=== PATIENT | male | born 1975 | race Hispanic/Latino ===

== ENCOUNTER 2017-12-17 13:16 | Emergency (ER) | payer OTHER ==
[~2017-12-17] VITALS: Ht 182.9 cm; Wt 149.2 kg
[~2017-12-17 13:16] MED LIST: BACTRIM DS TAB1 EACH PO; CLINDAMYCIN HC300 MG PO; DOXYCYCLINE HY100 MG PO; METFORMIN HCL1000 MG PO; NORCO 5-325 TA1 EACH PO; PANTOPRAZOLE SO40 MG PO; REGLAN10 MG PO; VASOTEC5 M1 PO
[2017-12-17] MEDS ORDERED: HYDROCODONE/APAP 10MG-325MG TAB PO ONE (13:45)
[2017-12-17 14:10] LABS: BASOPHILS # (AUTO) 0.1 (0.0-0.1); BASOPHILS % 0.8 % (0.0-1.0); EOSINOPHILS # (AUTO) 0.2 (0.0-0.4); EOSINOPHILS % 2.5 % (0.0-6.0); HEMATOCRIT 40.1 % (38.2-49.6); HEMOGLOBIN 13.3 g/dL (14.0-18.0); LYMPHOCYTES # (AUTO) 3.1 (1.0-3.2); LYMPHOCYTES % 32.9 % (18.0-39.1); MEAN CORPUSCULAR HEMOGLOBIN 27.5 pg (28-32); MEAN CORPUSCULAR HGB CONC 33.2 g/dL (31-35); MEAN CORPUSCULAR VOLUME 82.9 fL (81-99); MONOCYTES # (AUTO) 0.7 (0.2-0.8); MONOCYTES % 7.6 % (4.4-11.3); NEUTROPHILS # (AUTO) 5.3 (2.1-6.9); NEUTROPHILS % 55.7 % (38.7-80.0); PLATELET COUNT 347 x10e3/uL (140-360); RED BLOOD COUNT 4.84 x10e6/uL (4.3-5.7); RED CELL DISTRIBUTION WIDTH 13.2 % (11.7-14.4)
[2017-12-17 14:20] LABS: INR 1.22; PARTIAL THROMBOPLASTIN TIME 38.3 seconds (23.8-35.5); PROTHROMBIN TIME 14.5 seconds (11.9-14.5)
[2017-12-17 14:26] LABS: ANION GAP 12.1 mmol/L (8-16); BLOOD UREA NITROGEN 5 mg/dL (7-26); BUN/CREATININE RATIO 7 (6-25); CALCIUM 9.4 mg/dL (8.4-10.2); CARBON DIOXIDE 29 mmol/L (22-29); CHLORIDE 98 mmol/L (98-107); CREATININE, SERUM 0.75 mg/dL (0.72-1.25); EST GLOMERULAR FILTRATION RATE > 60 ML/MIN (60-); GLUCOSE 216 mg/dL (74-118); POTASSIUM 4.1 mmol/L (3.5-5.1); SODIUM 135 mmol/L (136-145)
--- NOTE | 2017-12-17 14:58 | Diagnostic Imaging Report ---
PROCEDURE:X-RAY LEFT FOOT, COMPLETE COMPARISON:None. INDICATIONS:S/P GREAT TOE AMPUTATION 5 DAYS AGO FINDINGS: Amputation of the first toe at the level of the distal metatarsal with regional soft tissue swelling. No acute displaced fractures of the remaining bones. No dislocations. Hammer-toe deformities. Small dorsal and plantar calcaneal enthesophytes. Mild degenerative changes of the midfoot. CONCLUSION: Postoperative changes related to amputation of the first toe at the level of the distal metatarsal. Dictated by: Schuyler Negro M.D. on 12/17/2017 at 14:59 Electronically approved by: Schuyler Negro M.D. on 12/17/2017 at 14:59
[2017-12-17 17:34] VITALS: BP 158/90
== END 2017-12-17 18:00 | disposition home or self-care (01) ==
LOC: ER 13:16
DX: Z48.01 Encounter for change or removal of surgical wound dressing (principal)
CPT/HCPCS: 36415; 80048; 85025; 85610; 85730; 99283

== ENCOUNTER 2018-01-05 08:36 | Outpatient (RCR) | payer OTHER ==
[2018-01-05] MEDS ORDERED: GABAPENTIN100 MG PO (14:24)
[2018-01-05] MEDS ORDERED: LIDOCAINE VISC 2% SOLN 15 ML UDC ONE (16:49)
== END 2018-01-17 ==
LOC: WCC 08:36
PROVIDERS: ATTEND Family Medicine
DX: E11.621 Type 2 diabetes mellitus with foot ulcer (principal); L97.426 Non-pressure chronic ulcer of left heel and midfoot with bone involvement without evidence of necrosis; I10 Essential (primary) hypertension; Z01.810 Encounter for preprocedural cardiovascular examination; Z01.811 Encounter for preprocedural respiratory examination
CPT/HCPCS: 36415; 82948; 87071; 87075; 87186; 87205

== ENCOUNTER 2018-01-05 13:29 | Inpatient (IN) | payer OTHER ==
[~2018-01-05] VITALS: Ht 182.9 cm; Wt 134.0 kg
--- OUTSIDE RECORDS SUMMARY | 2018-01-05 13:31 | XMS REPORT | Continuity of Care Document ---
Author Author [facility] Organization [facility] Address [address] [place] [address] Phone Unavailable Care Team Providers Care Brush And Broom Clipper Name Role Phone IAIN ROTHMAN MD PCP Advance Directives Directive Response Recorded Date/Time Does the patient have an advance directive? No 02/27/14 2:33am If yes, is advance directive on file with [facility]? No 02/27/14 2:33am If not on file with [facility] will patient provide a copy? No 02/27/14 2:33am Do you have a Directive to Physician? No 12/17/17 6:10pm Do you have a Medical Power of Acquisitions Logistics Analyst? No 12/17/17 6:10pm Do you have an out of hospital Do Not Resuscitate Order? No 12/17/17 6:10pm Do you have any special needs we should be aware of? No 12/17/17 6:10pm Do you have a support person here with you today? Yes 12/17/17 6:10pm Did patient receive Notice of Privacy Practices? Yes 12/17/17 6:10pm Did patient receive patient rights and responsibilities? Yes 12/17/17 6:10pm Problems No problem information available. Medications Current Home Medications Medication Dose Units Route Directions Days Qty Instructions Start Date Enalapril Maleate (Vasotec) 5 Mg Tablet 5 Mg Oral Daily Hydrocodone Bit/Acetaminophen (Clark 5-325 Tablet) 1 Each Tablet 1-2 Tab Oral Bedtime as needed for Pain Hydrocodone Bit/Acetaminophen (Clark 5-325 Tablet) 1 Each Tablet 5 Mg Oral Every 6 Hours 1-2TABS EVERY 6HOURS NEEDED FOR PAIN Metformin Hcl 1,000 Mg Tablet 1,000 Mg Oral Twice A Day Past Home Medications Medication Directions Ordered Status Clindamycin Hcl 300 Mg Capsule, 300 Mg Oral Every 6 Hrs Discontinued Doxycycline Hyclate 100 Mg Capsule, 100 Mg Oral Twice A Day Discontinued Metoclopramide Hcl (Reglan) 10 Mg Tablet, 10 Mg Oral Twice A Day Discontinued Pantoprazole Sodium (Protonix) 40 Mg Tablet.dr, 40 Mg Oral Daily Discontinued Sulfamethoxazole/Trimethoprim (Bactrim Ds Tablet) 1 Each Tablet, Oral Twice A Day Discontinued Social History Social History Problem Response Recorded Date/Time Onset Date Status Hx Psychiatric Problems No 02/27/2014 2:33am Not Applicable Not Applicable Hx Eating Disorder No 02/27/2014 2:33am Not Applicable Not Applicable Hx Substance Use Disorder No 02/27/2014 2:33am Not Applicable Not Applicable Hx Depression No 02/27/2014 2:33am Not Applicable Not Applicable Hx Alcohol Use No 02/27/2014 2:33am Not Applicable Not Applicable Hx Substance Use Treatment No 02/27/2014 2:33am Not Applicable Not Applicable Hx Physical Abuse No 02/27/2014 2:33am Not Applicable Not Applicable Hospital Discharge Instructions No hospital discharge instruction information available. Plan of Care Discharge Date 12/17/17 6:00pm Disposition HOME, SELF-CARE Condition at Discharge Stable Instructions/Education Provided Wound Care (General) Forms Provided Work/School Excuse Prescriptions See Medication Section Additional Instructions/Education KEEP FOLLOW UP APPOINTMENT WITH DR DAILEY ON December AT 2PM KEEP WOUND DRY AND CLEAN CONTINUE CURRENT MEDICATION Functional Status No functional status information available. Allergies, Adverse Reactions, Alerts No known allergies. Immunizations No immunization information available. Vital Signs Acute Vital Signs Vital Response Date/Time Pulse Pulse Rate (adult) 78 bpm (60 - 90) 12/17/2017 5:34pm Respiratory Rate 20 bpm (12 - 24) 12/17/2017 5:34pm Blood Pressure 158/90 mm Hg 12/17/2017 5:34pm Height 6 ft 0 in 12/17/2017 1:22pm Weight 329 lb 12/17/2017 1:22pm Body Mass Index 44.6 kg/m^2 12/17/2017 1:22pm Results Laboratory Results Test Name Result Units Flags Reference Collection Date/Time Result Date/ Time Comments White Blood Count 9.53 x10e3/uL 4.8-10.8 12/17/2017 1:30pm 12/17/2017 2 :13pm Red Blood Count 4.84 x10e6/uL 4.3-5.7 12/17/2017 1:3012/17/2017 2: 13pm Hemoglobin 13.3 g/dL L 14.0-18.0 12/17/2017 1:3012/17/2017 2:13pm Hematocrit 40.1 % 38.2-49.6 12/17/2017 1:3012/17/2017 2:13pm Mean Corpuscular Volume 82.9 fL 81-99 12/17/2017 1:3012/17/2017 2: 13pm Mean Corpuscular Hemoglobin 27.5 pg L 28-32 12/17/2017 1:302017 2:13pm Mean Corpuscular Hemoglobin Concent 33.2 g/dL 31-35 12/17/2017 1:3012/17/2017 2:13pm Red Cell Distribution Width 13.2 % 11.7-14.4 12/17/2017 1:302017 2:13pm Platelet Count 347 x10e3/uL 140-360 12/17/2017 1:3012/17/2017 2: 13pm Neutrophils (%) (Auto) 55.7 % 38.7-80.0 12/17/2017 1:3012/17/2017 2: 13pm Lymphocytes (%) (Auto) 32.9 % 18.0-39.1 12/17/2017 1:3012/17/2017 2: 13pm Monocytes (%) (Auto) 7.6 % 4.4-11.3 12/17/2017 1:3012/17/2017 2: 13pm Eosinophils (%) (Auto) 2.5 % 0.0-6.0 12/17/2017 1:3012/17/2017 2: 13pm Basophils (%) (Auto) 0.8 % 0.0-1.0 12/17/2017 1:30pm 12/17/2017 2:13pm IM GRANULOCYTES % 0.5 % 0.0-1.0 12/17/2017 1:30pm 12/17/2017 2:13pm Neutrophils # (Auto) 5.3 2.1-6.9 12/17/2017 1:30pm 12/17/2017 2:13pm Lymphocytes # (Auto) 3.1 1.0-3.2 12/17/2017 1:30pm 12/17/2017 2:13pm Monocytes # (Auto) 0.7 0.2-0.8 12/17/2017 1:30pm 12/17/2017 2:13pm Eosinophils # (Auto) 0.2 0.0-0.4 12/17/2017 1:30pm 12/17/2017 2:13pm Basophils # (Auto) 0.1 0.0-0.1 12/17/2017 1:30pm 12/17/2017 2:13pm Absolute Immature Granulocyte (auto 0.05 x10e3/uL 0-0.1 12/17/2017 1: 30pm 12/17/2017 2:13pm Prothrombin Time 14.5 seconds 11.9-14.5 12/17/2017 1:30pm 12/17/2017 2: 22pm Prothromb Time International Ratio 1.22 12/17/2017 1:30pm 2017 2:22pm Oral Anticoagulant Therapy INR Values: 1. Low Intensity Therapy 1.5 - 2.0 2. Moderate Intensity Therapy 2.0 - 3.0 3. High Intensity Therapy(1) 2.5 - 3.5 4. High Intensity Therapy(2) 3.0 - 4.0 5. Panic Value INR > 5.0 Activated Partial Thromboplast Time 38.3 seconds H 23.8-35.5 12/17/2017 1 :30pm 12/17/2017 2:22pm Sodium Level 135 mmol/L L 136-145 12/17/2017 1:30pm 12/17/2017 2:27pm Potassium Level 4.1 mmol/L 3.5-5.1 12/17/2017 1:30pm 12/17/2017 2:27pm Chloride Level 98 mmol/L 98-107 12/17/2017 1:30pm 12/17/2017 2:27pm Carbon Dioxide Level 29 mmol/L 22-29 12/17/2017 1:30pm 12/17/2017 2: 27pm Anion Gap 12.1 mmol/L 8-16 12/17/2017 1:30pm 12/17/2017 2:27pm Blood Urea Nitrogen 5 mg/dL L 7-12/17/2017 1:30pm 12/17/2017 2:27pm Creatinine 0.75 mg/dL 0.72-1.25 12/17/2017 1:30pm 12/17/2017 2:27pm BUN/Creatinine Ratio 7 6-12/17/2017 1:30pm 12/17/2017 2:27pm Estimat Glomerular Filtration Rate > 60 ML/MIN 60- 12/17/2017 1:30pm 2:27pm Ranges were taken from the National Kidney Disease Education Program and the National Kidney Foundation literature. Reference ranges: 60 or greater: Normal 16-59 (for 3 consecutive months): Chronic kidney disease 15 or less: Kidney failure Glucose Level 216 mg/dL H 74-118 12/17/2017 1:30pm 12/17/2017 2:27pm Calcium Level 9.4 mg/dL 8.4-10.2 12/17/2017 1:30pm 12/17/2017 2:27pm Procedures No procedure information available. Encounters Encounter Location Arrival/Admit Date Discharge/Depart Date Attending Provider Departed Emergency Room [facility] 12/17/17 1:16pm 6:00pm NIMCO MATA MD
--- OUTSIDE RECORDS SUMMARY | 2018-01-05 13:31 | XMS REPORT ---
Author Author [facility] Address Unknown Phone Unavailable Care Team Providers Care Research Pharmacist Name Role Phone NIMCO MATA Unavailable Unavailable Problems This patient has no known problems. Allergies, Adverse Reactions, Alerts This patient has no known allergies or adverse reactions. Medications This patient has no known medications. Results Test Description Test Time Test Comments Text Results Atomic Results Result Comments FOOT LEFT COMPLETE [place] [id number] Patient Name: ALEXANDRIA ZAVALETA JR MR #: [id number] : 1975 Age/Sex: 42/M Req #: [id number] Adm Physician: Ordered by: NIMCO MATA MD Report #: [id number] Location: ER Room/Bed: Procedure: [id number] DX/FOOT LEFT COMPLETE Exam Date: 12/17/17 Exam Time: 1420 REPORT STATUS: Signed PROCEDURE: X-RAY LEFT FOOT, COMPLETE COMPARISON: None. INDICATIONS: S/P GREAT TOE AMPUTATION 5 DAYS AGO FINDINGS: Amputation of the first toe at the level of the distal metatarsal with regional soft tissue swelling. No acute displaced fractures of the remaining bones. No dislocations. Hammer- toe deformities. Small dorsal and plantar calcaneal enthesophytes. Mild degenerative changes of the midfoot. CONCLUSION: Postoperative changes related to amputation of the first toe at the level of the distal metatarsal. Dictated by: Schuyler Montero M.D. on 12/17/2017 at 14:59 Electronically approved by: Schuyler Montero M.D. on 12/17/2017 at 14:59 Dictated By: SCHUYLER MONTERO MD [id number] Transcribed By: PETER on 12/17/17 1459 COPY TO: NIMCO MATA MD
[2018-01-05] MEDS ORDERED: VANCOMYCIN 1GM/NS 250 ML 250 ML IV STA (13:59)
[2018-01-05] MEDS ORDERED: PIPER-TAZ 3.375 GM 50 ML IV STA (13:59)
[2018-01-05] MEDS ORDERED: GABAPENTIN100 MG PO (14:24)
[2018-01-05] MEDS ORDERED: ONDANSETRON HCL INJ 2 MG/ML VIAL IV STA (14:48)
[2018-01-05 14:59] LABS: BASOPHILS # (AUTO) 0.1 (0.0-0.1); BASOPHILS % 0.8 % (0.0-1.0); EOSINOPHILS # (AUTO) 0.3 (0.0-0.4); EOSINOPHILS % 2.8 % (0.0-6.0); HEMATOCRIT 42.4 % (38.2-49.6); HEMOGLOBIN 14.5 g/dL (14.0-18.0); LYMPHOCYTES # (AUTO) 3.2 (1.0-3.2); MEAN CORPUSCULAR HEMOGLOBIN 27.5 pg (28-32); MEAN CORPUSCULAR HGB CONC 34.2 g/dL (31-35); MEAN CORPUSCULAR VOLUME 80.5 fL (81-99); MONOCYTES # (AUTO) 0.9 (0.2-0.8); MONOCYTES % 8.3 % (4.4-11.3); NEUTROPHILS # (AUTO) 5.8 (2.1-6.9); NEUTROPHILS % 56.7 % (38.7-80.0); PLATELET COUNT 242 x10e3/uL (140-360); RED BLOOD COUNT 5.27 x10e6/uL (4.3-5.7); RED CELL DISTRIBUTION WIDTH 13.5 % (11.7-14.4)
[2018-01-05] MEDS ORDERED: MORPHINE SULFATE 2 MG/ML SYR IV ONE (15:00)
[2018-01-05 15:03] LABS: INR 1.17
[2018-01-05 15:10] LABS: ANION GAP 15.1 mmol/L (8-16); BLOOD UREA NITROGEN 16 mg/dL (7-26); BUN/CREATININE RATIO 15 (6-25); CALCIUM 9.6 mg/dL (8.4-10.2); CARBON DIOXIDE 24 mmol/L (22-29); CHLORIDE 98 mmol/L (98-107); CREATININE, SERUM 1.05 mg/dL (0.72-1.25); EST GLOMERULAR FILTRATION RATE > 60 ML/MIN (60-); GLUCOSE 297 mg/dL (74-118); POTASSIUM 4.1 mmol/L (3.5-5.1); SODIUM 133 mmol/L (136-145)
[2018-01-05] MEDS ORDERED: PIPER-TAZ 3.375 GM 50 ML IV SCH ×2 (16:45)
--- NOTE | 2018-01-05 17:10 | Consultation ---
DATE OF CONSULTATION: January 05, 2018 INFECTIOUS DISEASE CONSULTATION REQUESTING PHYSICIAN: Dr. Tyler Rothman. CONSULTATION REQUESTED REGARDING: Diabetic foot ulcer, probable osteomyelitis, diabetic foot infect. Thank you for this consultation. HISTORY OF PRESENT ILLNESS: This is a 42-year-old male who was originally seen at the wound care center at [facility], has had an amputation of the left great toe which was done in [place], [place], in the end of November 2017, had been on outpatient antibiotic treatment. Went to the wound care center today, was noted to have a nonhealing wound with signs of infection and soft-tissue necrosis along with erythema of the foot. Patient has a history of diabetes mellitus. On initial evaluation is noted to have an elevated white count of 10,000. Chemistries revealed normal BUN, creatinine. Glucose is elevated at 297. Cultures done, results of which are still pending. Wound cultures have also been performed. X-ray of the foot that was performed on the 17 of December revealed postoperative changes related to the amputation of the 1st toe at the level of the distal metatarsal. PAST MEDICAL HISTORY: Diabetes mellitus. Cholecystectomy. ALLERGIES: NO KNOWN DRUG ALLERGIES. CHRONIC MEDICATIONS: Reviewed. FAMILY HISTORY: Noncontributory. SOCIAL HISTORY: No active alcohol, tobacco or drug use. PHYSICAL EXAMINATION VITAL SIGNS: Temperature 98.1, pulse 114, respiratory rate 20, blood pressure 111/67. HEENT: Normocephalic, atraumatic. Extraocular movements not assessed. NECK: Supple. LUNGS: Fair air entry bilaterally. Clear to auscultation. HEART: Sounds S1/S2. No murmur, no gallop. ABDOMEN: Soft, nontender. Normoactive bowel sounds. EXTREMITIES: Left great toe amputation. Site opened with some fatty necrosis and soft-tissue necrosis. LABS: Reveal WBC count of 10.2, hemoglobin 14.5, platelets 242. BUN 16, creatinine 1.5, glucose 297. ASSESSMENT: This is a 42-year-old male with diabetes mellitus, had gangrene of the left great toe status post amputation, had osteomyelitis. Admitted now because of nonhealing wound over the left great toe amputation site with some soft-tissue necrosis and surrounding cellulitis. Suspect a polymicrobial infection. RECOMMENDATIONS: Will continue patient on antibiotic regimen of vancomycin and Zosyn. Consult Podiatry for the need for any further debridement. Cultures have been obtained. Will continue to follow. Duration and course of antibiotic therapy to be determined. Thank you, Dr. Rothman, for this consultation. Will follow patient along with you. Job#: [id number] EV cc:TYLER ROTHMAN MD
[2018-01-05] MEDS ORDERED: KETOROLAC TROMETHAMINE 30 MG/ML VIAL IV STA (17:12)
[2018-01-05] MEDS ORDERED: SODIUM CHLORIDE 0.9% 1000ML 1,000 ML IV ONE (17:15)
[2018-01-05] MEDS: PIPER-TAZ 3.375 GM 100 ML IV SCH (18:03)
[2018-01-05] MEDS ORDERED: DEXTROSE 50% SYRINGE 50 ML IV PRN (18:15)
[2018-01-05] MEDS ORDERED: ONDANSETRON HCL INJ 2 MG/ML VIAL IV PRN (18:15)
[2018-01-05] MEDS: SODIUM CHLORIDE 0.9% 1000ML 1,000 ML IV SCH (18:36)
--- NOTE | 2018-01-05 18:54 | Diagnostic Imaging Report ---
PROCEDURE:X-RAY LEFT FOOT, COMPLETE COMPARISON:[facility], DX, FOOT LEFT COMPLETE, 12/17/2017, 14:20. INDICATIONS:FOOT INFECTION FINDINGS: Amputation of the first toe at the level of the first metatarsal distal diaphysis. Cortical edges are irregular and indistinct. Moderate soft tissue swelling surrounding the first toe, which has increased since the prior exam. No acute displaced fracture or dislocation. Mild degenerative changes of the midfoot. CONCLUSION: Findings likely represent osteomyelitis of the first toe. Kaz Uribe M.D. Dictated by: Kaz Uribe M.D. on 01/05/2018 at 18:55 Electronically approved by: Kaz Uribe M.D. on 01/05/2018 at 18:55
[2018-01-05 20:00] VITALS: BP 128/85
[2018-01-05] MEDS: VANCOMYCIN 1GM/NS 250 ML 250 ML IV SCH (22:18)
[2018-01-05] MEDS: HYDROMORPHONE 1MG/1ML INJ IV PRN (22:22)
[2018-01-06] VITALS (7 sets, daily range): BP systolic 105–136; BP diastolic 54–72
[2018-01-06] MEDS: PIPER-TAZ 3.375 GM 100 ML IV SCH ×5 (01:02→23:26)
[2018-01-06] MEDS: SODIUM CHLORIDE 0.9% 1000ML 1,000 ML IV SCH ×4 (02:11→23:26)
[2018-01-06 06:14] LABS: BASOPHILS # (AUTO) 0.1 (0.0-0.1); BASOPHILS % 0.9 % (0.0-1.0); EOSINOPHILS # (AUTO) 0.3 (0.0-0.4); EOSINOPHILS % 4.2 % (0.0-6.0); HEMATOCRIT 37.6 % (38.2-49.6); HEMOGLOBIN 12.6 g/dL (14.0-18.0); LYMPHOCYTES # (AUTO) 3.4 (1.0-3.2); LYMPHOCYTES % 42.7 % (18.0-39.1); MEAN CORPUSCULAR HEMOGLOBIN 27.5 pg (28-32); MEAN CORPUSCULAR HGB CONC 33.5 g/dL (31-35); MEAN CORPUSCULAR VOLUME 82.1 fL (81-99); MONOCYTES # (AUTO) 0.8 (0.2-0.8); MONOCYTES % 10.3 % (4.4-11.3); NEUTROPHILS # (AUTO) 3.3 (2.1-6.9); NEUTROPHILS % 41.5 % (38.7-80.0); PLATELET COUNT 202 x10e3/uL (140-360); RED BLOOD COUNT 4.58 x10e6/uL (4.3-5.7); RED CELL DISTRIBUTION WIDTH 13.6 % (11.7-14.4)
[2018-01-06 06:32] LABS: INR 1.15; PROTHROMBIN TIME 13.8 seconds (11.9-14.5)
[2018-01-06 06:33] LABS: PARTIAL THROMBOPLASTIN TIME 35.8 seconds (23.8-35.5)
[2018-01-06 06:44] LABS: ANION GAP 10.2 mmol/L (8-16); BLOOD UREA NITROGEN 19 mg/dL (7-26); BUN/CREATININE RATIO 20 (6-25); CALCIUM 9.1 mg/dL (8.4-10.2); CARBON DIOXIDE 25 mmol/L (22-29); CHLORIDE 102 mmol/L (98-107); CREATININE, SERUM 0.94 mg/dL (0.72-1.25); EST GLOMERULAR FILTRATION RATE > 60 ML/MIN (60-); GLUCOSE 305 mg/dL (74-118); POTASSIUM 4.2 mmol/L (3.5-5.1); SODIUM 133 mmol/L (136-145)
[2018-01-06] MEDS: HYDROMORPHONE 1MG/1ML INJ IV PRN ×4 (09:42→23:26)
[2018-01-06] MEDS: VANCOMYCIN 1GM/NS 250 ML 250 ML IV SCH ×2 (09:43→20:12)
[2018-01-06] MEDS ORDERED: DEXTROSE 50% SYRINGE 50 ML IV PRN (10:30)
--- NOTE | 2018-01-06 10:44 | History and Physical ---
This 42-year-old male patient of mine presented to the emergency room from the wound care center as the patient was having left foot infected wound. For that, the patient was getting outpatient treatment, but it was not getting better. Wound care evaluation was done, and the patient was found to have an infected wound, so the patient was advised to go to the ER. From the emergency room, the patient was admitted. HISTORY OF PRESENT ILLNESS: Mr. Trejo is a 42-year-old male patient who has a wound on the left 1st metatarsal. For that, the patient was treated in [place] and had surgery on December 15 in [place]. Debridement was done. After that, the patient continued to have a nonhealing wound, and it was not infected. Outpatient antibiotics were given, and he was referred to podiatry and wound care. The patient did not improve and actually worsened, so the patient was admitted. ALLERGIES: NO KNOWN DRUG ALLERGIES. MEDICATIONS: The patient is on enalapril, metformin, lisinopril, cefuroxime, and Tylenol with Codeine. PAST MEDICAL HISTORY: Diabetes mellitus and hypertension. PAST SURGICAL HISTORY: Gallbladder and foot surgery. FAMILY HISTORY: Diabetes mellitus. SOCIAL HISTORY: The patient is a smoker. REVIEW OF SYSTEMS: Left foot pain and foul-smelling discharge and weakness. PHYSICAL EXAMINATION VITAL SIGNS: Temperature 97, pulse rate 70, respirations 16, blood pressure 120/70. HEENT: Normocephalic, atraumatic. NECK: No JVD. LUNGS: Bilateral fair air entry. No rales. No rhonchi. HEART: S1 and S2 regular. No murmur. No gallop. ABDOMEN: Soft. Bowel sounds are present. NEUROLOGIC: Nonfocal. No neurologic deficit. LEFT FOOT: The patient has bone exposed and extensive wound with purulent drainage and necrotic tissue at the base. Surrounding erythema and edema are present. Pulses are present. ADMISSION IMPRESSION AND DIAGNOSES 1. Left foot osteomyelitis with diabetic neuropathy, Charcot joint, and unstageable ulcer. 2. Diabetes mellitus. 3. Possible peripheral arterial disease. 4. Hypertension. PLAN: The patient will be admitted with the above diagnoses. The patient will be treated with IV vancomycin and Zosyn. The patient will need aggressive wound care. Podiatry and ID consults have been done. We will also obtain cardiology consultation. Job#: [id number] MH
[2018-01-06] MEDS: ENALAPRIL MALEATE 5 MG TAB PO SCH (11:00)
[2018-01-06] MEDS: ASPIRIN 81 MG ENTERIC COATED PO SCH (11:00)
[2018-01-06] MEDS ORDERED: ONDANSETRON HCL 4 MG ORAL DISINTEGRATING TAB PO PRN (11:45)
[2018-01-06] MEDS: INSULIN REGULAR, HUMAN 100 UNIT/1 ML 3ML VIAL SQ SCH ×3 (12:00→20:23)
[2018-01-06] MEDS: GABAPENTIN 300 MG CAP PO SCH (12:00)
--- NOTE | 2018-01-06 12:09 | Consultation ---
DATE OF CONSULTATION: January 06, 2018 CARDIOLOGY CONSULTATION This is a 42-year-old gentleman who has been diabetic at least 14 years. He also has history of pancreatitis in 2014. He does have history of hypertension. Patient for years has had severe symptoms of peripheral neuropathy. He was in [place], [place], where he woke up with a tear and a wound to his left foot. The patient was treated locally with medications and did not improve, so he had extensive left great toe amputation on the November. This continued to be feeling unwell and nonhealing. In fact, when I saw it, it was foul smelling. He showed me the picture following surgery, and today there are more gangrenous changes all the way to half of the foot. The other toes are affected, and there are infection and severe cellulitis. Consultation was obtained. I visited with the patient. His activities are limited. At his current level of activity, he denies having any angina. He does have easy fatigability and shortness of breath on exertion. He does have sleep apnea-like symptoms. There is no prior myocardial infarction. Regarding the lower extremities, he does have chronic discoloration and skin changes of both lower extremities. There are severe skin changes. He does have problem with tingling and numbness of his feet for a long time. His problems started in late October or early November. It did not heal so it ended with amputation in [place], [place]. Now, it is progressively worse with foul smelling and gangrene around all the edges and quite ill foot. REVIEW OF SYSTEMS GENERAL: No fever. No chills. Poor appetite and feeling ill. HEENT: Decreased hearing and decreased vision. CARDIAC AND PULMONARY: As per above. GI: No hematemesis. No melena. : Increased frequency of urination. MUSCULAR: Nonspecific aches. NEUROLOGIC: Severe peripheral neuropathy of the lower extremities. SKIN: Severe changes of the lower extremity and the acute illness. ENDOCRINE: He is diabetic. SOCIAL HISTORY: He is . He smokes cigarettes every now and then. He is a social alcohol drinker. He works for a company in [employer]. MEDICATIONS: Home medications are: 1. Vasotec 5 mg a day. 2. Metformin 1,000 mg twice a day. 3. Gabapentin 300 mg a day. 4. Cefuroxime. 5. Hydrocodone. Following admission, patient is on vancomycin and Zosyn. ALLERGIES: NONE. PAST MEDICAL HISTORY 1. Diabetes mellitus with end-organ damage. 2. Pancreatitis in 2013. 3. Cholecystectomy. 4. Left foot ulcer and amputation, progressing to gangrene and severe cellulitis. The toe amputation was 12/15/2017. FAMILY HISTORY: Father is hypertensive and diabetic. Out of his brothers and sisters, at least 1 or 2 are diabetic. He does have 5 of his own children. PHYSICAL EXAMINATION VITALS: Height of 6 feet, weight of 289 pounds. Blood pressure 110/70. Heart rate of 90, respiratory rate of 20. Temperature 98.1 Fahrenheit. HEENT: Pupils are reactive. NECK: No elevation of jugular venous pulsation. No thyromegaly. CHEST: Decreased air entry but clear to auscultation and percussion. HEART: PMI at 5th left intercostal space, normal 1st and 2nd heart sounds. ABDOMEN: Obese. EXTREMITIES: Dressing over the left foot, but it is very foul smelling. There is evidence of severe gangrenous changes of the dorsum of the foot. The bottom of the foot is not very well visualized. There are changes in the other toes. The skin bilaterally all the way almost to the horta is not healthy-looking skin with chronic changes. NEUROLOGIC: The neck is supple. No motor deficits. LAB DATA: CBC showing white blood cell count of 10.3, hemoglobin 12.6, hematocrit 37.6. Platelets of 202. Chemistry showing BUN of 19 and creatinine 0.9. Glucose of 305. EKG: Sinus tachycardia and nonspecific ST changes. IMPRESSION AND PLAN 1. Gangrenous foot, status post amputation, and the gangrene is extended. There is evidence of severe infection and severe changes. 2. Diabetes mellitus. 3. Hypertension. 4. Hyperlipidemia. 5. Chronic skin changes. From a vascular point of view, will check his arterial Doppler. I believe the case is advanced, and the patient is going to have at least metatarsal amputation, if not higher than that. Regardless will re-evaluate the patient. Will discuss with the physicians, and further steps to be taken. Job#: [id number]
[2018-01-06] MEDS: METFORMIN HCL 500 MG TAB PO SCH ×2 (12:51→16:45)
--- NOTE | 2018-01-06 13:11 | Consultation ---
DATE OF CONSULTATION: January 06, 2018 PODIATRY SURGERY CONSULTATION REASON FOR CONSULTATION: Osteomyelitis with open, infected wound, left foot. HISTORY OF PRESENT ILLNESS: I have seen the patient in the office 1 time last week. He came to me after he had an amputation in [place], [place]. He says he developed a wound. He was doing some local wound care. The wound got worse. He went to [place]. They did an amputation. The wound was left open, and he was sent home with home health care. When I saw him in my office, I discussed with him that he probably needed some more IV antibiotic. The bone is exposed. The wound was stable at that point, but I knew he was going to require more care, so he went to the wound care center for further evaluation and possible hyperbaric therapy. PAST MEDICAL HISTORY 1. Diabetes mellitus. 2. Hypertension. PAST SURGICAL HISTORY 1. Cholecystectomy. 2. Left foot debridement and amputation of the hallux. SOCIAL HISTORY: The patient admits to tobacco use. Denies any illicit drug use. REVIEW OF SYSTEMS: Left foot ulcer infected with bone exposed. LOWER EXTREMITY PHYSICAL EXAMINATION: Pedal pulses are palpable, but they are diminished. Capillary refill time is delayed. He has intrinsic minus type of foot. The skin is thin, dry, and atrophic. Hyperpigmentation. No pedal hair growth. The left foot has full-thickness ulcer down to the level of bone with the 1st metatarsal exposed. There is purulence. There are erythema and edema. Right now, it is up to the mid foot. It was extending down to the ankle when he was admitted, but now it is contained down to the mid foot. There is no streaking erythema and no ascending lymphangitis at this point. There is purulence expressed from the wound. There is malodor. Protective threshold is absent. He has a collapsed medial foot consistent with Charcot joint. X-ray is positive for osteomyelitis. ASSESSMENT 1. Ulcer, grade 3, left foot. 2. Diabetes mellitus. 3. Peripheral vascular disease. 4. History of tobacco use. 5. Neuropathy. 6. History of noncompliance with diabetes. PLAN: At this point I discussed with the patient that he needs debridement down to the area. I am going to take deep bone cultures tomorrow. All nonviable tissue will be removed. I am going to drain the area, and I am going to irrigate it. Sometime early next week, he is probably going to need a 2nd surgery. If the wound responds, he will possibly need a delayed closure in the future. If the wound does not respond, he is going to probably end up with a TMA. He is aware of this. He also has some eschar to the digits where he has had previous ulcers. I have discussed with him that those might need to be addressed in the future. He is aware of this. At this point, he needs to be compliant with his diabetes. Infectious disease is following him for the antibiotic. Dr. Oglesby was consulted for PVD. I will continue to follow the wound. He will have surgery tomorrow, and I plan for further surgery next week with continued debridement. Thank you for letting me participate in the care of this patient. DONNA GRIFFIN DPM Job#: [id number]
--- NOTE | 2018-01-06 15:18 | Consultation ---
DATE OF CONSULTATION: REASON FOR CONSULTATION: Osteomyelitis of the left foot. HISTORY OF PRESENT ILLNESS: This patient is a 42-year-old male with history of diabetes mellitus for more than 10 years, history of obesity and history of hypertension. He is having infection with his left foot for several weeks, almost a month, and the patient underwent surgery in [facility] and underwent amputation of his big toe. Patient has an open wound which is deep. He has been getting oral antibiotic but the wound is not healing, getting progressively worse. Patient was admitted. The patient is currently lying in bed comfortably. PAST MEDICAL HISTORY: Diabetes mellitus, hypertension, obesity and neuropathy. PAST SURGICAL HISTORY: Cholecystectomy, amputation of the big toe. ALLERGIES: NKA. SOCIAL HISTORY: There is no drug abuse or alcohol abuse. (HANGS UP). Job#: [id number]
--- NOTE | 2018-01-06 15:27 | Consultation ---
DATE OF CONSULTATION: DATE: CONTINUATION, ADDENDUM: MEDICATIONS: Enalapril, metformin, lisinopril, ceftriaxone. PAST MEDICAL HISTORY: Diabetes mellitus and hypertension. ALLERGIES: NKA.. SOCIAL HISTORY: He smokes occasionally. PHYSICAL EXAMINATION GENERAL: Alert, oriented, does not seem to be in any acute distress. VITAL SIGNS: Stable, currently afebrile. HEENT: Not icteric. NECK: Supple. CHEST: Clear bilaterally. COR: S1 and S2, no murmur. ABDOMEN: Soft. Bowel sounds present. Obese. EXTREMITIES: On the foot, there is an open wound which is deep. There is slough, and there is edema and erythema. LABORATORY DATA: White count 7.86, hemoglobin 12, sodium 133, potassium 4.2, creatinine 0.94. IMPRESSION: I think the patient has osteomyelitis. I am concerned about peripheral vascular disease in a patient who has diabetes. RECOMMENDATIONS: I would suggest to obtain vascular workup. I agree with vancomycin and Zosyn. He probably needs surgical debridement. I am not so sure if he is going to close this wound. We need a PICC line. Will arrange outpatient IV antibiotics or long-term antibiotics. Will follow. Job#: [id number]
[2018-01-06] MEDS: ENOXAPARIN SOD INJ 40 MG/0.4 ML SYR SC SCH (16:45)
[2018-01-06] MEDS ORDERED: NON-FORMULARY MEDICATION (Metformin Hcl 1,000 MG) PO SCH (17:00)
[2018-01-07] VITALS (8 sets, daily range): BP systolic 110–179; BP diastolic 64–86
[2018-01-07] MEDS: HYDROMORPHONE 1MG/1ML INJ IV PRN ×4 (05:30→21:14)
[2018-01-07] MEDS: PIPER-TAZ 3.375 GM 100 ML IV SCH ×3 (05:46→18:08)
[2018-01-07 06:22] LABS: BASOPHILS # (AUTO) 0.1 (0.0-0.1); BASOPHILS % 0.8 % (0.0-1.0); EOSINOPHILS # (AUTO) 0.3 (0.0-0.4); HEMATOCRIT 36.2 % (38.2-49.6); HEMOGLOBIN 11.9 g/dL (14.0-18.0); LYMPHOCYTES # (AUTO) 3.1 (1.0-3.2); LYMPHOCYTES % 40.5 % (18.0-39.1); MEAN CORPUSCULAR HEMOGLOBIN 26.9 pg (28-32); MEAN CORPUSCULAR HGB CONC 32.9 g/dL (31-35); MEAN CORPUSCULAR VOLUME 81.7 fL (81-99); MONOCYTES # (AUTO) 0.7 (0.2-0.8); MONOCYTES % 8.7 % (4.4-11.3); NEUTROPHILS # (AUTO) 3.5 (2.1-6.9); NEUTROPHILS % 45.6 % (38.7-80.0); PLATELET COUNT 179 x10e3/uL (140-360); RED BLOOD COUNT 4.43 x10e6/uL (4.3-5.7); RED CELL DISTRIBUTION WIDTH 13.3 % (11.7-14.4)
[2018-01-07 06:32] LABS: INR 1.17
[2018-01-07 06:33] LABS: PARTIAL THROMBOPLASTIN TIME 37.8 seconds (23.8-35.5)
[2018-01-07] MEDS ORDERED: BACITRACIN 50,000 UNIT VIAL ONE (06:48)
[2018-01-07] MEDS ORDERED: BUPIVACAINE HCL 0.5% INJ 30 ML VIAL INJ ONE (06:48)
[2018-01-07 07:02] LABS: ALANINE AMINOTRANSFERASE 19 IU/L (0-55); ALBUMIN 2.7 g/dL (3.5-5.0); ALBUMIN/GLOBULIN RATIO 0.6 (0.8-2.0); ALKALINE PHOSPHATASE 90 IU/L (40-150); BLOOD UREA NITROGEN 12 mg/dL (7-26); BUN/CREATININE RATIO 16 (6-25); CALCIUM 8.7 mg/dL (8.4-10.2); CARBON DIOXIDE 24 mmol/L (22-29); CHLORIDE 105 mmol/L (98-107); CREATININE, SERUM 0.75 mg/dL (0.72-1.25); EST GLOMERULAR FILTRATION RATE > 60 ML/MIN (60-); GLUCOSE 121 mg/dL (74-118); SODIUM 136 mmol/L (136-145)
[2018-01-07 07:22] LABS: CHOL/HDL RATIO 3.4 (3.9-4.7)
[2018-01-07] MEDS: INSULIN REGULAR, HUMAN 100 UNIT/1 ML 3ML VIAL SQ SCH ×4 (07:30→21:34)
--- NOTE | 2018-01-07 08:03 | Operative Report ---
DATE OF PROCEDURE: January 07, 2018 PREOPERATIVE DIAGNOSES 1. Diabetic foot ulcer, grade 3, left foot. 2. Osteomyelitis. 3. 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 4. History of Charcot joint. PROCEDURES 1. Excisional debridement with irrigation down to bone, left foot. 2. Bone biopsy, left foot. PATHOLOGY: Bone biopsy. Bone culture and sensitivity. HEMOSTASIS: None. ESTIMATED BLOOD LOSS: Less than 20 mL. MATERIALS: None. INJECTABLES: 10 mL of 0.5 Marcaine plain given postop. COMPLICATIONS: None. CONDITION: Stable. PROCEDURE IN DETAIL: Under mild sedation, the patient was brought to the operating room and placed on the operating table in the supine position. Following IV sedation, anesthesia was obtained with a general anesthetic. At this point, the foot was scrubbed, prepped and draped in the usual aseptic manner. It was then lowered to the table. Attention was directed to the ulcer at the dorsal aspect of the left foot, where, utilizing a combination of bone rongeurs, 15 blade and curette, all nonviable tissue was debrided, excisional debridement to the area down to clean, viable, bleeding tissue. A bone biopsy was taken. Bone culture and sensitivity were taken. The area was then copiously irrigated with pulse resident care manager rn with Bacitracin. The area was then examined for any further nonviable tissue, and none was visualized. At this point, the area was then packed with Betadine wet-to-dry, 4 x 4's, Kerlix and an Ernie bandage. The patient tolerated the procedure and the anesthesia well without complications. He was transported to the recovery room with vital signs stable and vascular status unchanged to both feet. The patient will be readmitted back into the hospital. Wound care is going to apply a wound VAC. The patient is aware that at this point my main concern is to control infection down to the area. Once all infection is controlled, he will need further surgery, possible graft or a flap. He might end up with a more proximal amputation, and he is aware of this. He will be strictly nonweightbearing. We will continue to follow. Job#: [id number]
[2018-01-07] MEDS ORDERED: GABAPENTIN 100 MG CAP PO SCH (09:00)
[2018-01-07] MEDS: ENALAPRIL MALEATE 5 MG TAB PO SCH (09:00)
[2018-01-07] MEDS: GABAPENTIN 300 MG CAP PO SCH (09:14)
[2018-01-07] MEDS: VANCOMYCIN 1GM/NS 250 ML 250 ML IV SCH ×2 (09:14→21:08)
[2018-01-07] MEDS: ASPIRIN 81 MG ENTERIC COATED PO SCH (09:14)
[2018-01-07] MEDS: METFORMIN HCL 500 MG TAB PO SCH ×2 (09:14→16:50)
[2018-01-07] MEDS: SODIUM CHLORIDE 0.9% 1000ML 1,000 ML IV SCH ×2 (09:53→17:10)
[2018-01-07] MEDS: ENOXAPARIN SOD INJ 40 MG/0.4 ML SYR SC SCH (16:50)
[2018-01-07] MEDS ORDERED: LIDOCAINE HCL 2% LOCAL INJ 5 ML SDV VIAL INJ ONE (17:23)
[2018-01-07] MEDS ORDERED: ONDANSETRON HCL INJ 2 MG/ML VIAL ONE (17:23)
[2018-01-07] MEDS ORDERED: DEXAMETHASONE SOD PHOS INJ 4 MG/ML VIAL ONE (17:23)
[2018-01-07] MEDS ORDERED: PROPOFOL IV EMULSION 10 MG/ML 20 ML VIAL ONE (17:23)
[2018-01-07] MEDS ORDERED: SEVOFLURANE INHAL SOLN 250 ML PEN BTL ONE (17:23)
[2018-01-07] MEDS ORDERED: FENTANYL CITRATE/PF 100MCG/2 ML INJ ONE (17:34)
[2018-01-07] MEDS ORDERED: MIDAZOLAM HCL 2 MG/2 ML VIAL ONE (17:34)
[2018-01-08] VITALS: BP 141/86
[2018-01-08] MEDS: PIPER-TAZ 3.375 GM 100 ML IV SCH ×4 (00:07→18:05)
[2018-01-08] MEDS: HYDROMORPHONE 1MG/1ML INJ IV PRN ×6 (00:07→17:14)
[2018-01-08 04:00] VITALS: BP 119/76
[2018-01-08] MEDS: SODIUM CHLORIDE 0.9% 1000ML 1,000 ML IV SCH ×3 (04:02→18:05)
[2018-01-08] MEDS: INSULIN REGULAR, HUMAN 100 UNIT/1 ML 3ML VIAL SQ SCH ×4 (07:30→20:37)
[2018-01-08 07:54] VITALS: BP 157/83
[2018-01-08] MEDS: METFORMIN HCL 500 MG TAB PO SCH ×2 (08:02→17:14)
[2018-01-08] MEDS: GABAPENTIN 300 MG CAP PO SCH (08:02)
[2018-01-08] MEDS: ENALAPRIL MALEATE 5 MG TAB PO SCH (08:02)
[2018-01-08] MEDS: ASPIRIN 81 MG ENTERIC COATED PO SCH (08:02)
[2018-01-08] MEDS: VANCOMYCIN 1GM/NS 250 ML 250 ML IV SCH ×2 (10:04→20:34)
[2018-01-08 11:54] VITALS: BP 148/80
[2018-01-08 15:47] VITALS: BP 126/60
[2018-01-08] MEDS: ENOXAPARIN SOD INJ 40 MG/0.4 ML SYR SC SCH (17:14)
[2018-01-08 20:10] VITALS: BP 137/70
[2018-01-08] MEDS: HYDROCODONE/APAP 5MG-325MG TAB PO PRN (20:37)
[2018-01-09] VITALS (8 sets, daily range): BP systolic 123–157; BP diastolic 61–83
[2018-01-09] MEDS: PIPER-TAZ 3.375 GM 100 ML IV SCH ×5 (00:54→23:13)
[2018-01-09] MEDS: HYDROCODONE/APAP 5MG-325MG TAB PO PRN ×2 (02:41→08:18)
[2018-01-09] MEDS: SODIUM CHLORIDE 0.9% 1000ML 1,000 ML IV SCH ×2 (04:44→10:11)
[2018-01-09 06:27] LABS: BASOPHILS # (AUTO) 0.1 (0.0-0.1); BASOPHILS % 0.9 % (0.0-1.0); EOSINOPHILS # (AUTO) 0.2 (0.0-0.4); EOSINOPHILS % 2.2 % (0.0-6.0); HEMATOCRIT 36.2 % (38.2-49.6); HEMOGLOBIN 12.1 g/dL (14.0-18.0); LYMPHOCYTES # (AUTO) 3.2 (1.0-3.2); LYMPHOCYTES % 39.2 % (18.0-39.1); MEAN CORPUSCULAR HEMOGLOBIN 27.6 pg (28-32); MEAN CORPUSCULAR HGB CONC 33.4 g/dL (31-35); MEAN CORPUSCULAR VOLUME 82.6 fL (81-99); MONOCYTES # (AUTO) 0.7 (0.2-0.8); MONOCYTES % 8.9 % (4.4-11.3); NEUTROPHILS % 48.6 % (38.7-80.0); PLATELET COUNT 206 x10e3/uL (140-360); RED BLOOD COUNT 4.38 x10e6/uL (4.3-5.7); RED CELL DISTRIBUTION WIDTH 13.6 % (11.7-14.4)
[2018-01-09 07:09] LABS: ALANINE AMINOTRANSFERASE 18 IU/L (0-55); ALBUMIN 2.8 g/dL (3.5-5.0); ALBUMIN/GLOBULIN RATIO 0.7 (0.8-2.0); ALKALINE PHOSPHATASE 89 IU/L (40-150); ANION GAP 11.9 mmol/L (8-16); BLOOD UREA NITROGEN 13 mg/dL (7-26); BUN/CREATININE RATIO 16 (6-25); CARBON DIOXIDE 26 mmol/L (22-29); CHLORIDE 105 mmol/L (98-107); CREATININE, SERUM 0.79 mg/dL (0.72-1.25); EST GLOMERULAR FILTRATION RATE > 60 ML/MIN (60-); GLUCOSE 122 mg/dL (74-118); POTASSIUM 3.9 mmol/L (3.5-5.1); SODIUM 139 mmol/L (136-145)
[2018-01-09] MEDS: INSULIN REGULAR, HUMAN 100 UNIT/1 ML 3ML VIAL SQ SCH ×4 (07:30→21:07)
[2018-01-09] MEDS: METFORMIN HCL 500 MG TAB PO SCH ×2 (08:00→16:47)
[2018-01-09] MEDS: ASPIRIN 81 MG ENTERIC COATED PO SCH (09:00)
[2018-01-09] MEDS: VANCOMYCIN 1GM/NS 250 ML 250 ML IV SCH (09:00)
[2018-01-09] MEDS: ENALAPRIL MALEATE 5 MG TAB PO SCH (09:00)
[2018-01-09] MEDS: GABAPENTIN 300 MG CAP PO SCH ×2 (09:00→16:47)
[2018-01-09] MEDS: HYDROCODONE/APAP 10MG-325MG TAB PO PRN ×2 (11:54→21:07)
[2018-01-09] MEDS: ENOXAPARIN SOD INJ 40 MG/0.4 ML SYR SC SCH (16:48)
[2018-01-09] MEDS: VANCOMYCIN HCL 1.25 GM in SODIUM CHLORIDE 0.9% 250ML 300 ML IV SCH (21:06)
[2018-01-10 00:25] VITALS: BP 127/67
[2018-01-10 04:25] VITALS: BP 147/81
[2018-01-10] MEDS: PIPER-TAZ 3.375 GM 100 ML IV SCH ×3 (05:14→17:13)
[2018-01-10 08:00] VITALS: BP 162/95
[2018-01-10] MEDS: INSULIN REGULAR, HUMAN 100 UNIT/1 ML 3ML VIAL SQ SCH ×4 (08:00→21:45)
[2018-01-10] MEDS: GABAPENTIN 300 MG CAP PO SCH ×2 (08:30→17:00)
[2018-01-10] MEDS: ASPIRIN 81 MG ENTERIC COATED PO SCH (08:30)
[2018-01-10] MEDS: METFORMIN HCL 500 MG TAB PO SCH ×2 (08:30→17:00)
[2018-01-10] MEDS: ENALAPRIL MALEATE 5 MG TAB PO SCH (08:30)
[2018-01-10] MEDS: VANCOMYCIN HCL 1.25 GM in SODIUM CHLORIDE 0.9% 250ML 300 ML IV SCH ×2 (11:00→21:54)
[2018-01-10 12:00] VITALS: BP 154/90
[2018-01-10 16:00] VITALS: BP 157/90
[2018-01-10] MEDS: HYDROCODONE/APAP 10MG-325MG TAB PO PRN ×2 (17:00→23:10)
[2018-01-10] MEDS: ENOXAPARIN SOD INJ 40 MG/0.4 ML SYR SC SCH (17:00)
[2018-01-10 20:00] VITALS: BP 144/71
[2018-01-11] VITALS: BP 125/59
[2018-01-11] MEDS: PIPER-TAZ 3.375 GM 100 ML IV SCH ×3 (00:50→11:55)
[2018-01-11 04:00] VITALS: BP 114/54
[2018-01-11] MEDS: INSULIN REGULAR, HUMAN 100 UNIT/1 ML 3ML VIAL SQ SCH ×2 (07:46→12:00)
[2018-01-11 08:01] VITALS: BP 141/79
--- NOTE | 2018-01-11 08:51 | Progress Note ---
DATE: Patient was seen at bedside today. The wound VAC was taken down. He is comfortable. He denies any nausea or vomiting. He says he is having new pain that he did not have before, but it is somewhat controlled with the gabapentin and Pierre. When the wound VAC was taken down, the bed appears to be granular. It is granulating. The erythema and edema are very localized. No significant erythema. No ascending lymphangitis. Serosanguineous drainage was only seen. No purulence was seen at this point. Negative Homans' sign. Intrinsic minus type of foot. ASSESSMENT 1. Ulcer, grade 3, left foot. 2. Osteomyelitis. 3. 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 PLAN: At this point, the patient is going to be transferred to LT for IV antibiotics. Once he is transferred to LT, he will follow up with me either in clinic or in the wound care center. I discussed with him that in about 2 weeks I am planning on doing a skin graft to the area in order to augment healing and speed it up. The wound is right now responding well to the IV antibiotics and wound VAC. We will continue that for possibly the next 2 weeks. Then he will be scheduled for outpatient surgery for a graft once the bed is 100% granular and ready for the graft and any infection is controlled. I will continue to follow. Job#: [id number]
[2018-01-11] MEDS: VANCOMYCIN HCL 1.25 GM in SODIUM CHLORIDE 0.9% 250ML 300 ML IV SCH (09:35)
[2018-01-11] MEDS: ENALAPRIL MALEATE 5 MG TAB PO SCH (09:35)
[2018-01-11] MEDS: ASPIRIN 81 MG ENTERIC COATED PO SCH (09:35)
[2018-01-11] MEDS: METFORMIN HCL 500 MG TAB PO SCH (09:35)
[2018-01-11] MEDS: GABAPENTIN 300 MG CAP PO SCH (09:35)
[2018-01-11 11:57] VITALS: BP 169/92
--- NOTE | 2018-01-11 14:38 | Discharge Summary ---
TRANSFER SUMMARY He is a 42-year-old male patient of mine. Presented to the emergency room with the complaint of left foot severe pain and foul-smelling wound. ADMITTING IMPRESSION/DIAGNOSIS 1. Left foot osteomyelitis with a left foot infected open wound which had failed outpatient treatment with antibiotic regimen. 2. Diabetes mellitus. 3. Mild peripheral arterial disease. 4. Hypertension. HOSPITAL COURSE SUMMARY: Patient was admitted with the above diagnoses. Patient was treated with IV vancomycin and Zosyn. ID and podiatry consults were done. Patient had undergone the debridement of the wound, and bone cultures were sent. Patient was found to have MRSA. His screening was done. Cardiology evaluation was done by Dr. Oglesby. Patient's wound was growing enterococci, MRSA and morganella which was sensitive to Zosyn. So, patient will be continued with the IV antibiotic vancomycin, Zosyn, and patient had aggressive Wound VAC. Patient was having issue with the pain in the wound. So, his medication was adjusted. Now, upon stabilization, patient will be discharged or transferred to [facility], a long-term acute hospital for IV antibiotic and aggressive wound care and close physician monitoring. IAIN ROTHMAN MD Job#: [id number] KATALINA
== END 2018-01-11 15:29 | DRG 629 ==
LOC: ER 13:29 → MED/SURG2 19:31
PROVIDERS: ADMIT Internal Medicine; ATTEND Internal Medicine
PROC: 0QBM0ZZ Excision of Left Tarsal, Open Approach (ICD-10-PCS; principal; 2018-01-07 06:54)
DX: E13.69 Other specified diabetes mellitus with other specified complication (principal); T87.44 Infection of amputation stump, left lower extremity; M86.172 Other acute osteomyelitis, left ankle and foot; E11.52 Type 2 diabetes mellitus with diabetic peripheral angiopathy with gangrene; I96 Gangrene, not elsewhere classified; L03.116 Cellulitis of left lower limb; Z68.41 Body mass index [BMI] 40.0-44.9, adult; E11.42 Type 2 diabetes mellitus with diabetic polyneuropathy; E11.65 Type 2 diabetes mellitus with hyperglycemia; I10 Essential (primary) hypertension; E11.621 Type 2 diabetes mellitus with foot ulcer; B95.62 Methicillin resistant Staphylococcus aureus infection as the cause of diseases classified elsewhere; Z91.19 Patient's noncompliance with other medical treatment and regimen; E11.610 Type 2 diabetes mellitus with diabetic neuropathic arthropathy; L97.524 Non-pressure chronic ulcer of other part of left foot with necrosis of bone; E78.5 Hyperlipidemia, unspecified; B95.2 Enterococcus as the cause of diseases classified elsewhere; B96.89 Other specified bacterial agents as the cause of diseases classified elsewhere; E66.9 Obesity, unspecified; R53.81 Other malaise; Z89.412 Acquired absence of left great toe
CPT/HCPCS: 36415; 80048; 80053; 80061; 80202; 82270; 82948; 83036; 84443; 85025; 85610; 85730; 87040; 87071; 87075; 87102; 87186; 87205; 87206; 88305; 88311; 93005; 93306; 93925; 97606; 99284; J1100; J1170; J1650; J1885; J2001; J2250; J2270; J2405; J2543; J3370; J7030; J7050

== ENCOUNTER 2018-02-28 22:07 | Emergency (ER) | payer BC, OTHER ==
[~2018-02-28] VITALS: Ht 182.9 cm; Wt 133.8 kg
[~2018-02-28 22:07] MED LIST changes: +GABAPENTIN100 MG PO
--- OUTSIDE RECORDS SUMMARY | 2018-02-28 22:10 | XMS REPORT | Continuity of Care Document ---
Author Author [facility] Organization [facility] Address [address] [place] [address] Phone Unavailable Care Team Providers Care Electrician Master Name Role Phone IAIN ROTHMAN MD PCP Insurance Providers Guarantor Elfego Zavaleta Jr Address [address] [place] [address] [address] [place] [address] Email [email or web address] [facility] Health Choice Excha Policy Number [id number] Subscriber's Name Elfego Zavaleta Jr Relationship 18 Self / Same As Patient Effective Date 17 Advance Directives Directive Response Recorded Date/Time Does the patient have an advance directive? No 01/05/18 8:00pm If yes, is advance directive on file with [facility]? No 01/05/18 8:00pm If not on file with [facility] will patient provide a copy? No 01/05/18 8:00pm Do you have a Directive to Physician? No 01/05/18 2:51pm Do you have a Medical Power of [employer] Instructor? No 01/05/18 2:51pm Do you have an out of hospital Do Not Resuscitate Order? No 01/05/18 2:51pm Do you have any special needs we should be aware of? No 01/05/18 2:51pm Do you have a support person here with you today? No 01/05/18 2:51pm Did patient receive Notice of Privacy Practices? Yes 01/05/18 2:51pm Did patient receive patient rights and responsibilities? Yes 01/05/18 2:51pm Problems No problem information available. Medications Current Home Medications Medication Dose Units Route Directions Days Qty Instructions Start Date Enalapril Maleate (Vasotec) 5 Mg Tablet 5 Mg Oral Daily Gabapentin 100 Mg Capsule 300 Mg Oral Daily Hydrocodone Bit/Acetaminophen ([place] 5-325 Tablet) 1 Each Tablet 5 Mg Oral Every 6 Hours 1-2TABS EVERY 6HOURS NEEDED FOR PAIN Metformin Hcl 1,000 Mg Tablet 1,000 Mg Oral Twice A Day Past Home Medications Medication Directions Ordered Status Clindamycin Hcl 300 Mg Capsule, 300 Mg Oral Every 6 Hrs Discontinued Doxycycline Hyclate 100 Mg Capsule, 100 Mg Oral Twice A Day Discontinued Hydrocodone Bit/Acetaminophen ([place] 5-325 Tablet) 1 Each Tablet, 1-2 Tab Oral Bedtime as needed for Pain Discontinued Metoclopramide Hcl (Reglan) 10 Mg Tablet, 10 Mg Oral Twice A Day Discontinued Pantoprazole Sodium (Protonix) 40 Mg Tablet.dr, 40 Mg Oral Daily Discontinued Sulfamethoxazole/Trimethoprim (Bactrim Ds Tablet) 1 Each Tablet, Oral Twice A Day Discontinued Social History Social History Problem Response Recorded Date/Time Onset Date Status Hx Psychiatric Problems No 01/05/2018 8:00pm Not Applicable Not Applicable Hx Eating Disorder No 01/05/2018 8:00pm Not Applicable Not Applicable Hx Substance Use Disorder No 01/05/2018 8:00pm Not Applicable Not Applicable Hx Depression No 01/05/2018 8:00pm Not Applicable Not Applicable Hx Alcohol Use No 01/05/2018 8:00pm Not Applicable Not Applicable Hx Substance Use Treatment No 01/05/2018 8:00pm Not Applicable Not Applicable Hx Physical Abuse No 01/05/2018 8:00pm Not Applicable Not Applicable Smoking Status Start Date Stop Date Current every day smoker Hospital Discharge Instructions No hospital discharge instruction information available. Plan of Care Discharge Date 01/11/18 3:29pm Disposition [facility] ([facility]) Instructions/Education Provided Rash - Nonspecific Prescriptions See Medication Section Functional Status Query Response Date Recorded FUNCTIONAL STATUS ` January 07, 2018 11:37am Assistive Devices None January 05, 2018 8:00pm Ambulation Ability Standby Assistance January 05, 2018 8:00pm Toileting Ability Minimum Assistance January 10, 2018 5:48pm Allergies, Adverse Reactions, Alerts No known allergies. Immunizations No immunization information available. Vital Signs Acute Vital Signs Vital Response Date/Time Temperature (Fahrenheit) 96.6 degrees F (97.6 - 99.5) 01/11/2018 11:57am Pulse Pulse Rate (adult) 66 bpm (60 - 90) 01/11/2018 11:57am Respiratory Rate 18 bpm (12 - 24) 01/11/2018 11:57am Blood Pressure 169/92 mm Hg 01/11/2018 11:57am Height 6 ft 0 in 01/05/2018 1:41pm Weight 295.50 lb 01/07/2018 1:09am Body Mass Index 40.1 kg/m^2 01/07/2018 1:09am Results Laboratory Results Test Name Result Units Flags Reference Collection Date/Time Result Date/ Time Comments White Blood Count 8.13 x10e3/uL 4.8-10.8 01/09/2018 6:00am 01/09/2018 6 :28am Red Blood Count 4.38 x10e6/uL 4.3-5.7 01/09/2018 6:00am 01/09/2018 6: 28am Hemoglobin 12.1 g/dL L 14.0-18.0 01/09/2018 6:00am 01/09/2018 6:28am Hematocrit 36.2 % L 38.2-49.6 01/09/2018 6:00am 01/09/2018 6:28am Mean Corpuscular Volume 82.6 fL 81-99 01/09/2018 6:00am 01/09/2018 6: 28am Mean Corpuscular Hemoglobin 27.6 pg L 28-32 01/09/2018 6:00am 2017 6:28am Mean Corpuscular Hemoglobin Concent 33.4 g/dL 31-35 01/09/2018 6:00am 01/09/2018 6:28am Red Cell Distribution Width 13.6 % 11.7-14.4 01/09/2018 6:00am 2017 6:28am Platelet Count 206 x10e3/uL 140-360 01/09/2018 6:00am 01/09/2018 6: 28am Neutrophils (%) (Auto) 48.6 % 38.7-80.0 01/09/2018 6:00am 01/09/2018 6: 28am Lymphocytes (%) (Auto) 39.2 % H 18.0-39.1 01/09/2018 6:00am 01/09/2018 6 :28am Monocytes (%) (Auto) 8.9 % 4.4-11.3 01/09/2018 6:00am 01/09/2018 6: 28am Eosinophils (%) (Auto) 2.2 % 0.0-6.0 01/09/2018 6:00am 01/09/2018 6: 28am Basophils (%) (Auto) 0.9 % 0.0-1.0 01/09/2018 6:00am 01/09/2018 6:28am IM GRANULOCYTES % 0.2 % 0.0-1.0 01/09/2018 6:00am 01/09/2018 6:28am Neutrophils # (Auto) 4.0 2.1-6.9 01/09/2018 6:00am 01/09/2018 6:28am Lymphocytes # (Auto) 3.2 1.0-3.2 01/09/2018 6:00am 01/09/2018 6:28am Monocytes # (Auto) 0.7 0.2-0.8 01/09/2018 6:00am 01/09/2018 6:28am Eosinophils # (Auto) 0.2 0.0-0.4 01/09/2018 6:00am 01/09/2018 6:28am Basophils # (Auto) 0.1 0.0-0.1 01/09/2018 6:00am 01/09/2018 6:28am Absolute Immature Granulocyte (auto 0.02 x10e3/uL 0-0.1 01/09/2018 6: 00am 01/09/2018 6:28am Prothrombin Time 14.0 seconds 11.9-14.5 01/07/2018 6:01am 01/07/2018 6: 40am Prothromb Time International Ratio 1.17 01/07/2018 6:01am 2017 6:40am Oral Anticoagulant Therapy INR Values: 1. Low Intensity Therapy 1.5 - 2.0 2. Moderate Intensity Therapy 2.0 - 3.0 3. High Intensity Therapy(1) 2.5 - 3.5 4. High Intensity Therapy(2) 3.0 - 4.0 5. Panic Value INR > 5.0 Activated Partial Thromboplast Time 37.8 seconds H 23.8-35.5 01/07/2018 6 :01am 01/07/2018 6:40am Sodium Level 139 mmol/L 136-145 01/09/2018 6:00am 01/09/2018 7:18am Potassium Level 3.9 mmol/L 3.5-5.1 01/09/2018 6:00am 01/09/2018 7:18am Chloride Level 105 mmol/L 98-107 01/09/2018 6:00am 01/09/2018 7:18am Carbon Dioxide Level 26 mmol/L -01/09/2018 6:00am 01/09/2018 7: 18am Anion Gap 11.9 mmol/L 8-01/09/2018 6:00am 01/09/2018 7:18am Blood Urea Nitrogen 13 mg/dL -01/09/2018 6:00am 01/09/2018 7:18am Creatinine 0.79 mg/dL 0.72-1.25 01/09/2018 6:00am 01/09/2018 7:18am BUN/Creatinine Ratio 16 6-25 01/09/2018 6:00am 01/09/2018 7:18am Estimat Glomerular Filtration Rate > 60 ML/MIN 60- 01/09/2018 6:00 7:18am Ranges were taken from the National Kidney Disease Education Program and the National Kidney Foundation literature. Reference ranges: 60 or greater: Normal 16-59 (for 3 consecutive months): Chronic kidney disease 15 or less: Kidney failure Glucose Level 122 mg/dL H 74-118 01/09/2018 6:00am 01/09/2018 7:18am Calcium Level 9.0 mg/dL 8.4-10.2 01/09/2018 6:00am 01/09/2018 7:18am Bedside Glucose 209 mg/dL H 70-120 01/11/2018 3:06pm 01/11/2018 3:59pm Meter ID: [id number] Hemoglobin A1c Percent 8.9 % H 4.0-7.0 01/07/2018 6:10am 01/07/2018 6: 43am Total Bilirubin 0.3 mg/dL 0.2-1.2 01/09/2018 6:00am 01/09/2018 7:18am Aspartate Amino Transf (AST/SGOT) 13 IU/L 5-34 01/09/2018 6:00am 2017 7:18am Alanine Aminotransferase (ALT/SGPT) 18 IU/L 0-55 01/09/2018 6:00am 7:18am Total Protein 6.9 g/dL 6.5-8.1 01/09/2018 6:00am 01/09/2018 7:18am Albumin 2.8 g/dL L 3.5-5.0 01/09/2018 6:00am 01/09/2018 7:18am Globulin 4.1 g/dL H 2.3-3.5 01/09/2018 6:00am 01/09/2018 7:18am Albumin/Globulin Ratio 0.7 L 0.8-2.0 01/09/2018 6:00am 01/09/2018 7: 18am Alkaline Phosphatase 89 IU/L 40-150 01/09/2018 6:00am 01/09/2018 7: 18am Triglycerides Level 195 MG/DL H 0-149 01/07/2018 6:10am 01/07/2018 7: 23am Cholesterol Level 137 MD/DL 0-199 01/07/2018 6:10am 01/07/2018 7:23am Less than 200 mg/dL Low Risk 201 - 239 mg/dL Borderline Risk 240 mg/dl and greater High Risk LDL Cholesterol 58 MG/DL L 60-130 01/07/2018 6:10am 01/07/2018 7:23am HDL Cholesterol 40 MG/DL 40-60 01/07/2018 6:10am 01/07/2018 7:23am Cholesterol/HDL Ratio 3.4 L 3.9-4.7 01/07/2018 6:10am 01/07/2018 7: 23am Thyroid Stimulating Hormone (TSH) 2.146 uIU/mL 0.350-4.940 01/06/2018 5: 54am 01/06/2018 11:13am Vancomycin Level Trough 6.0 ug/mL 5.0-10.0 01/08/2018 9:03am 2017 10:00am Stool Occult Blood NEGATIVE NEGATIVE 01/07/2018 12:14pm 01/07/2018 1: 06pm Microbiology Results Procedure Source Organism/Result Collection Date/Time Result Date/Time Result Status Blood Culture Blood NO GROWTH AFTER 5 DAYS, FINAL REPORT 01/05/2018 2:32pm 01/10/2018 4:06pm Final Wound Culture Foot, Left CITROBACTER KOSERI 01/07/2018 7:10am 01/11/2018 8: 57am Final ENTEROCOCCUS FAECALIS 01/07/2018 7:10am 01/11/2018 8:57am Final MORGANELLA MORGANII 01/07/2018 7:10am 01/11/2018 8:57am Final PROTEUS MIRABILIS 01/07/2018 7:10am 01/11/2018 8:57am Final STAPHYLOCOCCUS AUREUS 01/07/2018 7:10am 01/11/2018 8:57am Final [place] [id number] Patient Name: ELFEGO ZAVALETA JR MR # :[id number] : 1975 Age/Sex: 42/M Admit Physician: IAIN ROTHMAN MD Admit Date: 01/05/18 Location/Room/Bed: MED/SURG2- 203-1 Discharge Date: 01/11/18 Report: Discharge Summary TRANSFER SUMMARY He is a 42-year-old male patient of mine. Presented to the emergency room with the complaint of left foot severe pain and foul-smelling wound. ADMITTING IMPRESSION/DIAGNOSIS 1. Left foot osteomyelitis with a left foot infected open wound which had failed outpatient treatment with antibiotic regimen. 2. Diabetes mellitus. 3. Mild peripheral arterial disease. 4. Hypertension. HOSPITAL COURSE SUMMARY: Patient was admitted with the above diagnoses. Patient was treated with IV vancomycin and Zosyn. ID and podiatry consults were done. Patient had undergone the debridement of the wound, and bone cultures were sent. Patient was found to have MRSA. His screening was done. Cardiology evaluation was done by Dr. Oglesby. Patient's wound was growing enterococci, MRSA and morganella which was sensitive to Zosyn. So, patient will be continued with the IV antibiotic vancomycin, Zosyn, and patient had aggressive Wound VAC. Patient was having issue with the pain in the wound. So, his medication was adjusted. Now, upon stabilization, patient will be discharged or transferred to [facility], a long-term acute hospital for IV antibiotic and aggressive wound care and close physician monitoring. IAIN ROTHMAN MD Job#: [id number] Dictated By: IAIN ROTHMAN MD Transcribed By: [facility] on 01/11/18 <Electronically signed by IAIN ROTHMAN MD>01/13/18 0922 Procedures No procedure information available. Encounters Encounter Location Arrival/Admit Date Discharge/Depart Date Attending Provider Discharged Inpatient [facility] 01/05/18 7:31pm 01/11/18 3:29pm IAIN ROTHMAN MD Discharged Recurring [facility] 01/05/18 8:36am 01/17/18 11:59pm SAI GARCIA MD Departed Emergency Room [facility] 12/17/17 1:16pm 6:00pm NIMCO MATA MD
[2018-02-28] MEDS ORDERED: MORPHINE SULFATE 2 MG/ML SYR IV STA (22:56)
[2018-02-28] MEDS ORDERED: SODIUM CHLORIDE 0.9% 1000ML 1,000 ML IV STA (22:56)
[2018-02-28] MEDS ORDERED: PANTOPRAZOLE 40 MG 10ML VIAL IV STA (22:56)
[2018-02-28 23:19] LABS: BASOPHILS # (AUTO) 0.1 (0.0-0.1); BASOPHILS % 0.9 % (0.0-1.0); EOSINOPHILS % 7.8 % (0.0-6.0); HEMATOCRIT 43.9 % (38.2-49.6); LYMPHOCYTES # (AUTO) 3.2 (1.0-3.2); LYMPHOCYTES % 25.7 % (18.0-39.1); MEAN CORPUSCULAR HEMOGLOBIN 26.9 pg (28-32); MEAN CORPUSCULAR HGB CONC 34.2 g/dL (31-35); MEAN CORPUSCULAR VOLUME 78.8 fL (81-99); MONOCYTES # (AUTO) 0.9 (0.2-0.8); MONOCYTES % 6.9 % (4.4-11.3); NEUTROPHILS # (AUTO) 7.2 (2.1-6.9); NEUTROPHILS % 58.4 % (38.7-80.0); PLATELET COUNT 220 x10e3/uL (140-360); RED BLOOD COUNT 5.57 x10e6/uL (4.3-5.7); RED CELL DISTRIBUTION WIDTH 14.5 % (11.7-14.4)
[2018-02-28 23:24] LABS: INR 1.09; PROTHROMBIN TIME 13.3 seconds (11.9-14.5)
[2018-02-28 23:25] LABS: PARTIAL THROMBOPLASTIN TIME 35.8 seconds (23.8-35.5)
[2018-02-28 23:36] LABS: ALANINE AMINOTRANSFERASE 79 IU/L (0-55); ALKALINE PHOSPHATASE 154 IU/L (40-150); AMYLASE 129 U/L (25-125); ANION GAP 16.3 mmol/L (8-16); BLOOD UREA NITROGEN 19 mg/dL (7-26); BUN/CREATININE RATIO 20 (6-25); CALCIUM 9.9 mg/dL (8.4-10.2); CARBON DIOXIDE 21 mmol/L (22-29); CHLORIDE 100 mmol/L (98-107); CREATINE KINASE 75 IU/L (30-200); CREATININE, SERUM 0.96 mg/dL (0.72-1.25); EST GLOMERULAR FILTRATION RATE > 60 ML/MIN (60-); GLUCOSE 258 mg/dL (74-118); LIPASE 67 U/L (8-78); POTASSIUM 4.3 mmol/L (3.5-5.1); SODIUM 133 mmol/L (136-145)
[2018-02-28 23:39] LABS: CHOL/HDL RATIO 6.1 (3.9-4.7); CHOLESTEROL 182 MD/DL (0-199); HDL CHOLESTEROL 30 MG/DL (40-60); TRIGLYCERIDES 579 MG/DL (0-149)
[2018-02-28] MEDS ORDERED: ONDANSETRON HCL INJ 2 MG/ML VIAL IV STA (23:46)
[2018-02-28] MEDS ORDERED: ONDANSETRON HCL INJ 2 MG/ML VIAL ONE (23:46)
[2018-02-28 23:54] LABS: CLARITY,URINE CLEAR (CLEAR); COLOR,URINE YELLOW (YELLOW); KETONES,URINE NEGATIVE (NEGATIVE); LEUKOCYTE ESTERASE ,URINE NEGATIVE (NEGATIVE); NITRITE,URINE NEGATIVE (NEGATIVE); PROTEIN,URINE DIPSTICK NEGATIVE (NEGATIVE); URINE UROBILINOGEN 0.2 mg/dL (0.2 - 1)
[2018-02-28 23:55] LABS: AMPHETAMINES SCREEN,URINE NEGATIVE (NEGATIVE); BENZODIAZEPINES SCREEN,URINE POSITIVE (NEGATIVE); BILIRUBIN,URINE NEGATIVE (NEGATIVE); PHENCYCLIDINE SCREEN,URINE NEGATIVE (NEGATIVE)
--- NOTE | 2018-03-01 00:04 | Diagnostic Imaging Report ---
EXAM: CHEST SINGLE (PORTABLE), AP 1 view INDICATION: Abdominal pain and shortness of breath, chest pain COMPARISON: None FINDINGS: LINES/TUBES: None LUNGS: No consolidations or edema. PLEURA: No effusions or pneumothorax. HEART AND MEDIASTINUM: Normal size and contour. BONES AND SOFT TISSUES: No acute findings. IMPRESSION: No acute thoracic abnormality. Signed by: Dr. Ayleen Morales M.D. on 03/01/2018 12:00 AM
[2018-03-01 00:06] LABS: BACTERIA,URINE RARE /HPF; EPITHELIAL CELLS,URINE MODERATE /LPF; WBC,URINE (MAN) 0-5 /HPF (0-5)
--- NOTE | 2018-03-01 00:58 | Diagnostic Imaging Report ---
EXAM: CT ABDOMEN AND PELVIS with IV CONTRAST DATE: 03/01/2018 10:56 PM Time stamp on Exam: 0037 hours INDICATION: Abdominal pain COMPARISON: CT of the abdomen and pelvis February 27, 2014 TECHNIQUE: The abdomen and pelvis were scanned using a multidetector helical scanner. Coronal and sagittal reformations were obtained. Routine protocol performed. IV Contrast: 100 cc Isovue-370 Oral Contrast: Water CTDIvol has been reviewed. It is below the limits set by the Radiation Protocol Committee (RPC). FINDINGS: LOWER THORAX: Mild right lower lobe atelectasis. LIVER: No masses BILIARY: Cholecystectomy. No ductal dilation. SPLEEN: No masses PANCREAS: No masses ADRENALS: No nodules KIDNEYS: Symmetric perfusion. No enhancing masses. No hydronephrosis. GI TRACT: No distention, wall thickening or evidence of obstruction. Normal appendix. VESSELS: Unremarkable PERITONEUM/RETROPERITONEUM: No free air or fluid LYMPH NODES: No lymphadenopathy REPRODUCTIVE ORGANS: Unremarkable BLADDER: Unremarkable SOFT TISSUES: Unremarkable BONES: No suspicious bone lesions. Chronic deformity of the right hip. IMPRESSION: No acute findings. Signed by: Dr. Ayleen Morales M.D. on 03/01/2018 12:54 AM
[2018-03-01] MEDS ORDERED: SODIUM CHLORIDE 0.9% 50ML 50 ML ONE (02:03)
[2018-03-01] MEDS ORDERED: IOPAMIDOL 370 MG/ML 200 ML INFUS..BTL INJ ONE (02:04)
== END 2018-03-01 02:36 | disposition home or self-care (01) ==
LOC: ER 22:07
DX: R10.84 Generalized abdominal pain (principal); R10.13 Epigastric pain; R11.0 Nausea; E11.9 Type 2 diabetes mellitus without complications; K86.9 Disease of pancreas, unspecified
CPT/HCPCS: 36415; 71045; 74177; 80053; 80061; 80307; 81001; 82150; 82550; 82553; 83690; 83735; 84484; 85025; 85610; 85730; 87086; 99284; J2270; J2405; J7030; Q9967

== ENCOUNTER 2018-10-21 22:41 | Inpatient (IN) | payer MEDICARE, OTHER ==
[~2018-10-21] VITALS: Ht 182.9 cm; Wt 133.8 kg
--- OUTSIDE RECORDS SUMMARY | 2018-10-21 22:45 | XMS REPORT | Clinical Summary ---
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 Active gabapentin (NEURONTIN) Take 300 mg 0 300 mg capsule by mouth 3 (three) times a day. Active enalapril (VASOTEC) 2.5 Take 2.5 mg 0 MG tablet by mouth daily. Active glipiZIDE (GLUCOTROL) 5 Take 5 mg by 0 MG tablet mouth 2 (two) times a day before meals. Active traZODone (DESYREL) 50 MG Take 50 mg by 0 tablet mouth nightly. Active insulin detemir U-100 Inject 30 0 (LEVEMIR U-100 INSULIN) Units under 100 unit/mL injection the skin 2 (two) times a day. 07/13/2018 Discontinued HYDROcodone-acetaminophen TK 1 T PO Q 6 0 (NORCO) 10-325 mg per H PRN 8 tablet 08/10/2018 cyclobenzaprine Take 1 tablet 30 tablet 1 (FLEXERIL) 5 mg tablet (5 mg total) 8 by mouth 3 (three) times a day as needed for muscle spasms for up to 30 days. 08/10/2018 HYDROcodone-acetaminophen Take 1 tablet 30 tablet 0 (NORCO) 10-325 mg per by mouth 8 tablet every 4 (four) hours as needed for moderate pain for up to 30 days. Max Daily Amount: 6 tablets Active Problems Problem Noted Date PVD (peripheral vascular disease) 07/07/2018 Amputation stump pain 07/01/2018 Overview: Added automatically from request for surgery [id number] Peripheral vascular disease, unspecified 07/01/2018 Overview: Added automatically from request for surgery [id number] Encounters Care Team Description Date Type Specialty Piter Frost MD AMPUTATION, BELOW KNEE, LEFT 07/07/2018 Surgery General Surgery Alexandr Montgomery MD 07/07/2018 Anesthesia General Surgery Event Piter Frost MD Tang, Hsiao Chiang, MD Amputation stump pain (HCC); Peripheral vascular disease, unspecified (HCC) 07/07/2018 Hospital General Surgery - Encounter 07/13/2018 Piter Frost MD 07/06/2018 Hospital Radiology Encounter Piter Frost MD 07/06/2018 Pre-Admit Pre-Admission Testing Testing Appointment Piter Frost MD Amputation stump pain (HCC) (Primary Dx); Peripheral vascular disease, unspecified (HCC) 07/01/2018 Prep for Cardiovascular Surgery Piter Frost MD Amputation stump pain (HCC) (Primary Dx); Peripheral vascular disease, unspecified (HCC) 07/01/2018 Orders Only Cardiovascular Piter Frost MD Non-healing wound of lower extremity, initial encounter (Primary Dx) 06/30/2018 Office Visit Cardiovascular after 10/20/2017 Family History Medical History Relation Name Comments Diabetes Brother Cancer Father Hypertension Father No Known Problems Mother Relation Name Status Comments Brother Father Mother Social History Date Tobacco Use Types Packs/Day Years Used Quit: 06/22/2018 Former Smoker Cigarettes 0.4 18 Smokeless Tobacco: Never Used Alcohol Use Drinks/Week oz/Week Comments No Sex Assigned at Date Recorded Not on file Industry Job Start Date Occupation Not on file Not on file Not on file Travel End Travel History Travel Start No recent travel history available. Last Filed Vital Signs Time Taken Vital Sign Reading 07/13/2018 3:49 PM CDT Blood Pressure 140/70 07/13/2018 3:49 PM CDT Pulse 83 07/13/2018 3:49 PM CDT Temperature 36.2 C (97.2 F) 07/13/2018 11:08 AM CDT Respiratory Rate 20 07/13/2018 3:49 PM CDT Oxygen Saturation 96% - Inhaled Oxygen - Concentration 07/07/2018 2:58 PM CDT Weight 142 kg (312 lb 4.8 oz) 07/07/2018 2:58 PM CDT Height 180.3 cm (5' 11") 07/07/2018 2:58 PM CDT Body Mass Index 43.56 Plan of Treatment Health Maintenance Due Date Last Done Comments INFLUENZA VACCINE 04/20/2018 Procedures Comments Procedure Name Priority Date/Time Associated Diagnosis POC GLUCOSE Routine 07/13/2018 3:49 PM CDT POC GLUCOSE Routine 07/13/2018 11:08 AM CDT POC GLUCOSE Routine 07/13/2018 6:39 AM CDT POC GLUCOSE Routine 07/12/2018 8:39 PM CDT POC GLUCOSE Routine 07/12/2018 3:56 PM CDT POC GLUCOSE Routine 07/12/2018 12:05 PM CDT POC GLUCOSE Routine 07/12/2018 6:24 AM CDT POC GLUCOSE Routine 07/11/2018 8:33 PM CDT POC GLUCOSE Routine 07/11/2018 4:53 PM CDT POC GLUCOSE Routine 07/11/2018 12:08 PM CDT POC GLUCOSE Routine 07/11/2018 6:26 AM CDT POC GLUCOSE Routine 07/10/2018 8:31 PM CDT POC GLUCOSE Routine 07/10/2018 4:29 PM CDT POC GLUCOSE Routine 07/10/2018 12:05 PM CDT POC GLUCOSE Routine 07/10/2018 6:22 AM CDT ESTIMATED GFR Routine 07/10/2018 5:57 AM CDT BASIC METABOLIC PANEL Routine 07/10/2018 5:57 AM CDT HC COMPLETE BLD COUNT Routine 07/10/2018 W/AUTO DIFF 5:57 AM CDT POC GLUCOSE Routine 07/09/2018 8:33 PM CDT POC GLUCOSE Routine 07/09/2018 5:30 PM CDT POC GLUCOSE Routine 07/09/2018 12:18 PM CDT XR KNEE 1 OR 2 VW Routine 07/09/2018 BILATERAL 10:18 AM CDT ESTIMATED GFR Routine 07/09/2018 9:55 AM CDT BASIC METABOLIC PANEL Routine 07/09/2018 9:55 AM CDT HC COMPLETE BLD COUNT Routine 07/09/2018 W/AUTO DIFF 9:55 AM CDT POC GLUCOSE Routine 07/09/2018 6:20 AM CDT POC GLUCOSE Routine 07/08/2018 8:46 PM CDT POC GLUCOSE Routine 07/08/2018 3:11 PM CDT POC GLUCOSE Routine 07/08/2018 11:19 AM CDT ESTIMATED GFR Routine 07/08/2018 6:50 AM CDT BASIC METABOLIC PANEL Routine 07/08/2018 6:50 AM CDT HC COMPLETE BLD COUNT Routine 07/08/2018 W/AUTO DIFF 6:50 AM CDT POC GLUCOSE Routine 07/08/2018 6:07 AM CDT POC GLUCOSE Routine 07/07/2018 8:12 PM CDT POC GLUCOSE Routine 07/07/2018 3:16 PM CDT SURGICAL PATHOLOGY Routine 07/07/2018 REQUEST 10:44 AM CDT POC GLUCOSE Routine 07/07/2018 10:08 AM CDT RI AN ELECTIVE Routine 07/07/2018 ENDOTRACHEAL AIRWAY 8:30 AM CDT Procedure Note - Trevor Spencer MD - 07/07/2018 8:30 AM CDT Airway Date/Time: 07/07/2018 8:17 AM Performed by: TREVOR SPENCER Authorized by: TREVOR SPENCER Location: OR Urgency: Elective Anesthesio logist: TREVOR SPENCER Preoxygena yari with 100% O2: Yes C-spine Precaution s Maintained Throughout : Yes Mask Ventilatio n: Easy mask Final Airway Type: Endotrache al airway Final Endotrache al Airway: ETT Cuffed: Yes Technique Used: Direct laryngosco py Devices/Me thods Used in Placement: Intubatin g stylet Insertion Site: Oral Blade Type: Essence Laryngosco pe Blade/Vide olaryngosc ope Blade Size: 3 ETT Size (mm): 8.0 Cuff at minimum occlusion pressure: Yes Measured from: Gums ETT to Gums (cm): 24 Placement Verified by: CO2 detection and direct visualizat ion Laryngosco pic view: Grade I - full view of glottis Rapid Sequence Induction (RSI): No Modified RSI: Yes Number of Attempts at Approach: 1 POC GLUCOSE Routine 07/07/2018 6:38 AM CDT XR CHEST 2 VW Routine 07/06/2018 12:03 PM CDT ECG 12-LEAD Routine 07/06/2018 11:21 AM CDT PREPARE RBC Timed 07/06/2018 11:05 AM CDT ESTIMATED GFR Routine 07/06/2018 11:05 AM CDT PROTHROMBIN TIME WITH INR Routine 07/06/2018 11:05 AM CDT PARTIAL THROMBOPLASTIN Routine 07/06/2018 TIME (PTT) 11:05 AM CDT HC COMPLETE BLD COUNT Routine 07/06/2018 W/AUTO DIFF 11:05 AM CDT BASIC METABOLIC PANEL Routine 07/06/2018 11:05 AM CDT TYPE AND SCREEN Timed 07/06/2018 11:05 AM CDT HEMOGLOBIN A1C Routine 07/06/2018 11:05 AM CDT after 10/20/2017 Results * POC glucose (07/13/2018 3:49 PM CDT) Only the most recent of 27 results within the time period is included. POC glucose 163 (H) 65 - 100 mg/dL [facility] Comment: PATHOLOGY AND Meter ID: [id number] GENOMIC MEDICINE Slip Cover Estimator: Fabiola Segura Performing Organization Address City/[facility]/Zipcode Phone Number [address] [place] [address] PATHOLOGY AND [facility] * Estimated GFR (07/10/2018 5:57 AM CDT) Only the most recent of 4 results within the time period is included. Estimated GFR >=90 mL/min/1.73 m2 [facility] Comment: PATHOLOGY AND CatergoryUnitsInte [facility]ICINE rpretation G1 >=90 Normal or high G2 60-89Mildly decreased [id number] Mildly to moderately decreased [id number] Moderately to severely decreased G4 15-29Severely decreased G5 <15Kidney failure The eGFR was calculated using the Chronic Kidney Disease Epidemiology Collaboration (CKD-EPI) equation. Interpretation is based on recommendations of the National Kidney Foundation-Kidney Disease Outcomes Quality Initiative (NKF-KDOQI) published in 2014. Specimen Plasma specimen Performing Organization Address City/[facility] Cent[facility]ode Phone Number [place] [phone] [facility]. [place] [phone] PATHOLOGY AND [facility] * CBC with platelet and differential (07/10/2018 5:57 AM CDT) Only the most recent of 4 results within the time period is included. WBC 6.7 4.2 - 11.0 k/uL [facility]Y AND GENOMIC MEDICINE RBC 3.75 (L) 4.04 - 5.86 m/uL [facility]OLOGY AND GENOMIC MEDICINE HGB 9.6 (L) 13.0 - 17.3 g/dL [facility]OLOGY AND GENOMIC MEDICINE HCT 30.0 (L) 34.0 - 45.0 % [facility]OLOGY AND GENOMIC MEDICINE MCV 80.0 80.0 - 98.0 fL [facility]OLOGY AND GENOMIC MEDICINE MCH 25.6 (L) 27.0 - 34.0 pg [facility] PATHOLOGY AND GENOMIC MEDICINE MCHC 32.0 31.5 - 36.5 g/dL [facility]OLOGY AND GENOMIC MEDICINE RDW - SD 42.5 37.0 - 51.0 fL [facility]OLOGY AND GENOMIC MEDICINE MPV 10.3 7.4 - 10.4 fL [facility]OLOGY AND GENOMIC MEDICINE Platelet count 187 150 - 400 k/uL [facility]OLOGY AND GENOMIC MEDICINE Nucleated RBC 0.00 /100 WBC [facility] PATHOLOGY AND GENOMIC MEDICINE Neutrophils 63.1 36.0 - 66.0 % [facility]OLOGY AND GENOMIC MEDICINE Lymphocytes 20.7 (L) 24.0 - 44.0 % [facility]OLOGY AND GENOMIC MEDICINE Monocytes 12.1 (H) 0.0 - 6.0 % [facility] PATHOLOGY AND GENOMIC MEDICINE Eosinophils 3.1 0.0 - 6.0 % [facility] PATHOLOGY AND GENOMIC MEDICINE Basophils 0.4 0.0 - 1.2 % [facility] PATHOLOGY AND GENOMIC MEDICINE Immature granulocytes 0.6 0.0 - 1.0 % [facility] PATHOLOGY [facility] Specimen Blood Performing Organization Address City/[facility] Centercode Phone Number [address] [place] [address] PATHOLOGY AND [facility] * Basic metabolic panel (07/10/2018 5:57 AM CDT) Only the most recent of 4 results within the time period is included. Sodium 139 135 - 150 mEq/L [facility]OLOGY AND GENOMIC MEDICINE Potassium 4.5 3.5 - 5.0 mEq/L [facility] PATHOLOGY AND GENOMIC MEDICINE Chloride 101 98 - 112 mEq/L [facility] PATHOLOGY AND GENOMIC MEDICINE CO2 29 24 - 31 mmol/L [facility] PATHOLOGY AND GENOMIC MEDICINE Anion gap 9@ANIO 7 - 15 mEq/L [facility] PATHOLOGY AND GENOMIC MEDICINE BUN 18 7 - 18 mg/dL [facility] PATHOLOGY AND GENOMIC MEDICINE Creatinine 0.80 0.70 - 1.20 mg/dL [facility] PATHOLOGY AND [facility] Glucose 142 (H) 65 - 100 mg/dL [facility] PATHOLOGY AND GENOMIC MEDICINE Calcium 9.0 8.3 - 10.2 mg/dL [facility] PATHOLOGY AND [facility] Specimen Plasma specimen Performing Organization Address City/[facility]/Zipcode Phone Number [address] [place] [address] PATHOLOGY AND GENOMIC MEDICINE * XR Knee 1 Or 2 Vw Bilateral (07/09/2018 10:18 AM CDT) Narrative Performed At EXAMINATION:XR KNEE 1 OR 2 VW BILATERAL [facility] CLINICAL HISTORY: Knee paininitial exam, patient fell COMPARISON:None. FINDINGS: 1.Below the knee amputation on the left side. Extensive degenerative changes in left knee. 2.Mild degenerative changes in the right knee. Small right knee joint effusion. 3.No acute osseous abnormality or malalignment noted. IMPRESSION: As above [facility]-[id number] Procedure Note Interface, Radiology Results Incoming - 07/09/2018 10:45 AM CDT EXAMINATION: XR KNEE 1 OR 2 VW BILATERAL CLINICAL HISTORY: Knee pain initial exam, patient fell COMPARISON: None. FINDINGS: 1. Below the knee amputation on the left side. Extensive degenerative changes in left knee. 2. Mild degenerative changes in the right knee. Small right knee joint effusion. 3. No acute osseous abnormality or malalignment noted. IMPRESSION: As above [facility]-[id number] Performing Organization Address City/State/Zipcode Phone Number [facility] [address] [place] [address] * Surgical pathology request (07/07/2018 10:44 AM CDT) [facility] AND GENOMIC MEDICINE Surgical pathology report See link below for PDF Lab [facility] Report PATHOLOGY AND GENOMIC MEDICINE Result status This is Final Report for [facility] [id number] PATHOLOGY AND GENOMIC MEDICINE Performing Organization Address City/State/[facility] Centercode Phone Number [facility] [address] [facility] [place] [address] PATHOLOGY AND GENOMIC MEDICINE * XR Chest 2 Vw (07/06/2018 12:03 PM CDT) Narrative Performed At EXAMINATION:XR CHEST 2 VW [facility] CLINICAL HISTORY:preoperative clearance COMPARISON:None IMPRESSION: 1.Heart size is within normal limits. Vessels are not congested. 2.No infiltrates or effusions are seen. [id number] Procedure Note Interface, Radiology Results Incoming - 07/06/2018 12:46 PM CDT EXAMINATION: XR CHEST 2 VW CLINICAL HISTORY: preoperative clearance COMPARISON: None IMPRESSION: 1. Heart size is within normal limits. Vessels are not congested. 2. No infiltrates or effusions are seen. [id number] Performing Organization Address [facility]/[place] Phone Number [facility] [address] [place] [address] * ECG 12 lead (07/06/2018 11:21 AM CDT) Ventricular rate 78 [facility] Atrial rate 78 [facility] RI interval 148 [facility] QRSD interval 86 [facility] QT interval 372 [facility] QTC interval 424 [facility] P axis 1 10 [facility] QRS axis 1 52 [facility] T wave axis 72 [facility] EKG impression Normal sinus rhythm-Normal [facility] MUSE ECG-No previous ECGs available- Performing Organization Address [facility] Centerconh Phone Number [facility] [address] [place] [address] * Partial thromboplastin time, activated (07/06/2018 11:05 AM CDT) PTT 34.1 23.0 - 36.0 sec [facility] Comment: PATHOLOGY AND PTT therapeutic range for GENOMIC MEDICINE unfractionated heparin is 61.0-112.0 seconds which corresponds to Anti-Xa 0.3-0.7 U/ml. Note:Change in Panic Value The PTT Panic Value is changing from 110 sec. to 100 sec. due to new instrumentation and reagents. Correlation studies have been performed to validate this result. Specimen Blood Performing Organization Address [facility] Phone Number [facility] [address] [place] [address] PATHOLOGY AND GENOMIC MEDICINE * Prothrombin time with INR (07/06/2018 11:05 AM CDT) Prothrombin time 13.3 12.0 - 15.0 sec [facility] PATHOLOGY AND GENOMIC MEDICINE INR 1.00 0.92 - 1.12 [facility] Comment: PATHOLOGY AND For patients on anticoagulant GENOMIC MEDICINE therapy, reference ranges below: Indication: INR Value Treatment of Venous Thrombosis, 2.0-3.0 pulmonary emboli, or prophylaxis of a venous thrombosis, or systemic emboli. High dose, high risk patients 3.0-4.5 with mechanical valves. NOTE:INR values over 3.0 are sometimes associated with gastrointestinal hemorrhage, especially values over 4.0. Specimen Blood Performing Organization Address City/State/Zipcode Phone Number [facility] [address] [place] [phone] PATHOLOGY AND GENOMIC MEDICINE * Type and screen (07/06/2018 11:05 AM CDT) ABO grouping O [facility] PATHOLOGY AND GENOMIC MEDICINE Rh type NEG [facility]OLOGY AND GENOMIC MEDICINE Antibody screen (gel) NEG [facility]OLOGY AND GENOMIC MEDICINE Specimen Blood Performing Organization Address City/State/Zipcode Phone Number [facility] [address] [place] [address] PATHOLOGY AND GENOMIC MEDICINE * Hemoglobin A1c (07/06/2018 11:05 AM CDT) Hemoglobin A1C 7.1 (H) 4.0 - 6.0 % [facility] Comment: PATHOLOGY AND GENOMIC MEDICINE Less than 6% - Goal of therapy for Type II Diabetes Less than 7%-Goal of therapy for Type I Diabetes Less than 8%-Accepta ble control for Type I or Type II Diabetes Greater than 8%-Unacceptabl e control; action indicated. ([id number]) Specimen Blood Performing Organization Address [facility] Centercode Phone Number [facility] [address] [place] [phone] PATHOLOGY AND GENOMIC MEDICINE after 10/20/2017 Insurance Payer Benefit Subscriber ID Type Phone Address Plan / Group BCBS BCBS xxxxxxxxxxxx PPO CHOICE PPO/HERBIE MEADOWS PPO Advance Directives Patient has advance care planning documents on file. For more information, plefior e contact: Cesar [place] [address] [place] [phone]
[2018-10-21] MEDS ORDERED: ONDANSETRON HCL INJ 2MG/ML 2ML 2 MG/ML VIAL IV STA (22:59)
[2018-10-21] MEDS ORDERED: HYDROMORPHONE 1MG/1ML INJ IV STA (22:59)
[2018-10-21] MEDS ORDERED: SODIUM CHLORIDE 0.9% 1000ML 1,000 ML IV ONE (23:00)
[2018-10-21] MEDS ORDERED: ASPIRIN 81 MG CHEW TAB PO ONE (23:00)
[2018-10-21] MEDS ORDERED: HYDROMORPHONE 2MG/ML 2 MG/ML ML ONE (23:28)
[2018-10-21] MEDS: SODIUM CHLORIDE 0.9% 1000ML 1,000 ML IV SCH (23:30)
[2018-10-22 00:03] LABS: BASOPHILS # (AUTO) 0.1 (0.0-0.1); BASOPHILS % 0.7 % (0.0-1.0); EOSINOPHILS # (AUTO) 0.1 (0.0-0.4); EOSINOPHILS % 1.4 % (0.0-6.0); HEMATOCRIT 49.3 % (38.2-49.6); LYMPHOCYTES % 20.6 % (18.0-39.1); MEAN CORPUSCULAR HGB CONC 34.5 g/dL (31-35); MEAN CORPUSCULAR VOLUME 75.4 fL (81-99); MONOCYTES % 10.5 % (4.4-11.3); NEUTROPHILS # (AUTO) 6.5 (2.1-6.9); NEUTROPHILS % 66.6 % (38.7-80.0); PLATELET COUNT 240 x10e3/uL (140-360); RED BLOOD COUNT 6.54 x10e6/uL (4.3-5.7); RED CELL DISTRIBUTION WIDTH 16.7 % (11.7-14.4)
[2018-10-22 00:26] LABS: ALANINE AMINOTRANSFERASE 34 IU/L (0-55); ALBUMIN 3.8 g/dL (3.5-5.0); ALBUMIN/GLOBULIN RATIO 1.1 (0.8-2.0); ALKALINE PHOSPHATASE 126 IU/L (40-150); AMYLASE 1318 U/L (25-125); ANION GAP 15.5 mmol/L (8-16); BLOOD UREA NITROGEN 11 mg/dL (7-26); BUN/CREATININE RATIO 12 (6-25); CALCIUM 9.4 mg/dL (8.4-10.2); CARBON DIOXIDE 22 mmol/L (22-29); CHLORIDE 99 mmol/L (98-107); CREATINE KINASE 69 IU/L (30-200); CREATININE, SERUM 0.93 mg/dL (0.72-1.25); EST GLOMERULAR FILTRATION RATE > 60 ML/MIN (60-); GLUCOSE 313 mg/dL (74-118); POTASSIUM 3.5 mmol/L (3.5-5.1); SODIUM 133 mmol/L (136-145)
[2018-10-22] MEDS ORDERED: SODIUM CHLORIDE 0.9% 1000ML 1,000 ML IV ONE (01:00)
[2018-10-22] MEDS ORDERED: MEROPENEM 500MG 500 MG in SODIUM CHLORIDE 0.9% 50ML 50 ML IV SCH (01:00)
[2018-10-22 01:05] LABS: LIPASE > 1200 U/L (8-78)
--- OUTSIDE RECORDS SUMMARY | 2018-10-22 01:09 | XMS REPORT | Clinical Summary ---
Author Author Cesar [facility] Organization [facility] Address Unknown Phone Unavailable Care Team Providers Care Hoop Maker Machine Name Role Phone Ghulam Bearden MD PCP [...] Overview: Added automatically from request for surgery [id number] Peripheral vascular disease, unspecified 07/01/2018 Overview: Added automatically from request for surgery [id number] Encounters Care Team Description Date Type Specialty [...] (Primary Dx) 06/30/2018 Office Visit Cardiovascular after 10/21/2017 Family History Medical History Relation Name Comments [...] POC GLUCOSE Routine 07/07/2018 10:08 AM CDT [place] AN ELECTIVE Routine 07/07/2018 ENDOTRACHEAL AIRWAY 8:30 AM CDT Procedure Note - Trevor Spencer MD - 07/07/2018 8:30 AM CDT Airway Date/Time: 07/07/2018 8:17 AM Performed by: TREVOR SPENCER Authorized by: TREVOR SPENCRE Location: OR Urgency: Elective Anesthesio logist: TREVOR [...] A1C Routine 07/06/2018 11:05 AM CDT after 10/21/2017 Results * POC glucose (07/13/2018 3:49 PM CDT) Only the most recent of 27 results within the time period is included. POC glucose 163 (H) 65 - 100 mg/dL [facility] Comment: PATHOLOGY AND Meter ID: [id number] GENOMIC MEDICINE Breaker Engineer: Fabiola Segura Performing Organization Address City/[facility]/Zipcode Phone Number [address] [place] [address] PATHOLOGY AND [employer] MEDICINE * Estimated GFR (07/10/2018 5:57 AM CDT) Only the most recent of 4 results within the time period is included. Estimated GFR >=90 mL/min/1.73 m2 [facility] Comment: PATHOLOGY AND [employer]oryUnitsInte [employer] MEDICINE rpretation G1 >=90 Normal or high G2 60-89Mildly decreased [id number] Mildly to moderately decreased [id number] Moderately to severely decreased G4 15-29Severely decreased G5 <15Kidney failure The eGFR was calculated using the Chronic Kidney Disease Epidemiology Collaboration (CKD-EPI) equation. Interpretation is based on recommendations of the National Kidney Foundation-Kidney Disease Outcomes Quality Initiative (NKF-KDOQI) published in 2014. Specimen Plasma specimen Performing Organization Address City/[facility] Services[facility] Phone Number [place] [phone] [facility]. [place] [phone] PATHOLOGY AND [employer] MEDICINE * CBC with platelet and differential (07/10/2018 5:57 AM CDT) Only the most recent of 4 results within the time period is included. WBC 6.7 4.2 - 11.0 k/uL [facility] PATHOLOGY AND GENOMIC MEDICINE RBC 3.75 (L) 4.04 - 5.86 m/uL [facility] PATHOLOGY AND GENOMIC MEDICINE HGB 9.6 (L) 13.0 - 17.3 g/dL [facility] PATHOLOGY AND GENOMIC MEDICINE HCT 30.0 (L) 34.0 - 45.0 % [facility] PATHOLOGY AND GENOMIC MEDICINE MCV 80.0 80.0 - 98.0 fL [facility] PATHOLOGY AND GENOMIC MEDICINE MCH 25.6 (L) 27.0 - 34.0 pg [facility] PATHOLOGY AND GENOMIC MEDICINE MCHC 32.0 31.5 - 36.5 g/dL [facility] PATHOLOGY AND GENOMIC MEDICINE RDW - SD 42.5 37.0 - 51.0 fL [facility] PATHOLOGY AND GENOMIC MEDICINE MPV 10.3 7.4 - 10.4 fL [facility] PATHOLOGY AND GENOMIC MEDICINE Platelet count 187 150 - 400 k/uL [facility] PATHOLOGY AND GENOMIC MEDICINE Nucleated RBC 0.00 /100 WBC [facility] PATHOLOGY AND GENOMIC MEDICINE Neutrophils 63.1 36.0 - 66.0 % [facility] PATHOLOGY AND GENOMIC MEDICINE Lymphocytes 20.7 (L) 24.0 - 44.0 % [facility] PATHOLOGY AND GENOMIC MEDICINE Monocytes 12.1 (H) 0.0 - 6.0 % [facility] PATHOLOGY AND GENOMIC MEDICINE Eosinophils 3.1 0.0 - 6.0 % [facility] PATHOLOGY AND GENOMIC MEDICINE Basophils 0.4 0.0 - 1.2 % [facility] PATHOLOGY AND GENOMIC MEDICINE Immature granulocytes 0.6 0.0 - 1.0 % [facility] PATHOLOGY [facility] WEPOWER Eco MEDICINE Specimen Blood Performing Organization Address City/[facility] Servicescode Phone Number [address] [place] [address] PATHOLOGY AND [employer] Eco [facility] * Basic metabolic panel (07/10/2018 5:57 AM CDT) Only the most recent of 4 results within the time period is included. Sodium 139 135 - 150 mEq/L [facility] PATHOLOGY AND GENOMIC MEDICINE Potassium 4.5 3.5 - 5.0 mEq/L [facility] PATHOLOGY AND GENOMIC MEDICINE Chloride 101 98 - 112 mEq/L [facility] PATHOLOGY AND GENOMIC MEDICINE CO2 29 24 - 31 mmol/L [facility] PATHOLOGY AND GENOMIC MEDICINE Anion gap 9@ANIO 7 - 15 mEq/L [facility] PATHOLOGY AND GENOMIC MEDICINE BUN 18 7 - 18 mg/dL [facility] PATHOLOGY AND GENOMIC MEDICINE Creatinine 0.80 0.70 - 1.20 mg/dL [facility] PATHOLOGY AND [employer] MEDICINE Glucose 142 (H) 65 - 100 mg/dL [facility] PATHOLOGY AND GENOMIC MEDICINE Calcium 9.0 8.3 - 10.2 mg/dL [facility] PATHOLOGY AND [employer] MEDICINE Specimen Plasma specimen Performing Organization Address City/[facility]/Zipcode Phone Number [address] [place] [address] PATHOLOGY AND GENOMIC MEDICINE * XR Knee [...] abnormality or malalignment noted. IMPRESSION: As above [facility]-[id number] Procedure Note Interface, Radiology Results Incoming - [...] abnormality or malalignment noted. IMPRESSION: As above [facility]-[id number] Performing Organization Address City/State/Zipcode Phone Number [facility] [address] [place] [address] * Surgical pathology request (07/07/2018 10:44 AM CDT) [facility] PATHOLOGY AND GENOMIC MEDICINE Surgical pathology report See link below for PDF Lab [facility] Report PATHOLOGY AND GENOMIC MEDICINE Result status This is Final Report for [facility] [id number] PATHOLOGY AND GENOMIC MEDICINE Performing Organization Address City/State/[facility] Servicescode Phone Number [facility] [address] [facility] [place] [address] PATHOLOGY AND GENOMIC MEDICINE * XR Chest 2 Vw (07/06/2018 12:03 PM CDT) Narrative Performed At EXAMINATION:XR CHEST 2 VW [facility] CLINICAL HISTORY:preoperative clearance COMPARISON:None IMPRESSION: 1.Heart size is within normal limits. Vessels are not congested. 2.No infiltrates or effusions are seen. [id number] Procedure Note Interface, Radiology Results Incoming - 07/06/2018 12:46 PM CDT EXAMINATION: XR CHEST 2 VW CLINICAL HISTORY: preoperative clearance COMPARISON: None IMPRESSION: 1. Heart size is within normal limits. Vessels are not congested. 2. No infiltrates or effusions are seen. [id number] Performing Organization Address [facility]/[place] Phone Number [facility] [address] [place] [address] * ECG 12 lead (07/06/2018 11:21 AM CDT) Ventricular rate 78 [facility] Atrial rate 78 [facility] [place] interval 148 [facility] QRSD interval 86 [facility] QT interval 372 [facility] QTC interval 424 [facility] P axis 1 10 [facility] QRS axis 1 52 [facility] T wave axis 72 [facility] MUSE EKG impression Normal sinus rhythm-Normal [facility] MUSE ECG-No previous ECGs available- Performing Organization Address [facility] Services[facility] Phone Number [facility] MUSE [address] [place] [address] * Partial thromboplastin time, activated (07/06/2018 11:05 AM CDT) PTT 34.1 23.0 - 36.0 sec [facility] Comment: PATHOLOGY AND PTT therapeutic range for GENOMIC MEDICINE unfractionated heparin is 61.0-112.0 seconds which corresponds to Anti-Xa 0.3-0.7 U/ml. Note:Change in Panic Value The PTT Panic Value is changing from 110 sec. to 100 sec. due to new instrumentation and reagents. Correlation studies have been performed to validate this result. Specimen Blood Performing Organization Address [facility] Services[facility] Phone Number [facility] [address] [place] [address] PATHOLOGY AND GENOMIC MEDICINE * Prothrombin time with INR (07/06/2018 11:05 AM CDT) Prothrombin time 13.3 12.0 - 15.0 sec [facility] PATHOLOGY AND GENOMIC MEDICINE INR 1.00 0.92 - 1.12 [facility] Comment: PATHOLOGY AND For patients [...] Blood Performing Organization Address City/State/Zipcode Phone Number [facility] [address] [place] [phone] PATHOLOGY AND GENOMIC MEDICINE * Type and screen (07/06/2018 11:05 AM CDT) ABO grouping O [facility] PATHOLOGY AND GENOMIC MEDICINE Rh type NEG [facility] PATHOLOGY AND GENOMIC MEDICINE Antibody screen (gel) NEG [facility] PATHOLOGY AND GENOMIC MEDICINE Specimen Blood Performing Organization Address City/State/Zipcode Phone Number [facility] [address] [place] [address] PATHOLOGY AND GENOMIC MEDICINE * Hemoglobin A1c (07/06/2018 11:05 AM CDT) Hemoglobin A1C 7.1 (H) 4.0 - 6.0 % [facility] Comment: PATHOLOGY AND GENOMIC MEDICINE Less than 6% - Goal of therapy for Type II Diabetes Less than 7%-Goal of therapy for Type I Diabetes Less than 8%-Accepta ble control for Type I or Type II Diabetes Greater than 8%-Unacceptabl e control; action indicated. (ADA94) Specimen Blood Performing Organization Address [facility] Services[facility] Phone Number [facility] [address] [place] [phone] PATHOLOGY AND GENOMIC MEDICINE after 10/21/2017 Insurance Payer Benefit Subscriber ID Type Phone Address Plan / Group BCBS BCBS xxxxxxxxxxxx PPO CHOICE PPO/HERBIE MEADOWS PPO Advance Directives Patient has advance care planning documents on file. For more information, plefior e contact: Cesar [place] [address] [place] [id number]
[2018-10-22] MEDS ORDERED: SODIUM CHLORIDE 0.9% 50ML 50 ML ONE (01:15)
[2018-10-22] MEDS ORDERED: MEROPENEM 1GM 1 GM/100 ML BAG IV SCH ×3 (01:15→18:00)
[2018-10-22] MEDS ORDERED: DEXTROSE 50% SYRINGE 50 ML IV PRN (01:15)
[2018-10-22] MEDS ORDERED: HYDROMORPHONE 1MG/1ML INJ IV PRN (01:15)
[2018-10-22] MEDS ORDERED: IOPAMIDOL 370 MG/ML 200 ML INFUS..BTL INJ ONE (01:15)
[2018-10-22 01:25] LABS: CLARITY,URINE HAZY (CLEAR); COLOR,URINE YELLOW (YELLOW)
[2018-10-22 01:26] LABS: BILIRUBIN,URINE NEGATIVE (NEGATIVE); KETONES,URINE NEGATIVE (NEGATIVE); LEUKOCYTE ESTERASE ,URINE NEGATIVE (NEGATIVE); NITRITE,URINE NEGATIVE (NEGATIVE); PROTEIN,URINE DIPSTICK 1+ (NEGATIVE); URINE UROBILINOGEN 0.2 mg/dL (0.2 - 1); WBC,URINE (MAN) 0-5 /HPF (0-5)
[2018-10-22 01:27] LABS: BACTERIA,URINE FEW /HPF; EPITHELIAL CELLS,URINE FEW /LPF; RBC,URINE 0-5 /HPF (0-5)
--- NOTE | 2018-10-22 01:50 | NUR ---
PATIENT RECEIVED FROM ER. PATIENT IS RESTING IN BED, AAOX3. RESP EVEN AND UNLABORED. NO ACUTE DISTRESS NOTED. PATIENT STATED THAT HE HAD MILD ABDOMINAL PAIN. DO NOT REQUEST FOR PAIN MED. ORIENTED TO FLOOR. ASSESSMENT DONE. FAMILY AT BED SIDE. CALL LIGHT WITHIN REACH. INSTRUCT TO CALL FOR ASSISTANCE. BED LOW/LOCKED. CONTINUE TO MONITOR CLOSELY
[2018-10-22 02:00] VITALS: BP 93/50
--- NOTE | 2018-10-22 02:17 | Diagnostic Imaging Report ---
EXAM: CT ABDOMEN/PELVIS W DATE: 10/22/2018 1:03 AM INDICATION: Pancreatitis COMPARISON: 03/01/2018 TECHNIQUE: The abdomen and pelvis were scanned using a multidetector helical scanner. Coronal and sagittal reformations were obtained. CT low dose techniques were utilized, as applicable. IV Contrast: 100 ml Isovue 300/370 FINDINGS: LOWER THORAX: Right basilar atelectasis/scarring. LIVER/BILIARY: Hepatic steatosis. No ductal dilatation. GALLBLADDER: Cholecystectomy SPLEEN: Unremarkable PANCREAS: Slight enlargement of the pancreas with subtle peripancreatic infiltration of the fat, for example on image 31. ADRENALS: No nodules KIDNEYS: No suspicious renal masses. No hydronephrosis. GI TRACT: No wall thickening or evidence of obstruction. Normal appendix. VESSELS: Minimal atherosclerotic changes PERITONEUM/RETROPERITONEUM: No free air or fluid collection. LYMPH NODES: No lymphadenopathy REPRODUCTIVE ORGANS/BLADDER: Unremarkable SOFT TISSUES: Unremarkable BONES: Chronic deformity of the right hip with severe degenerative change and shallow acetabulum. IMPRESSION: 1. Interstitial edematous pancreatitis. 2. Hepatic steatosis. Signed by: Dr Mindy Chirinos MD on 10/22/2018 2:14 AM
--- NOTE | 2018-10-22 02:20 | NUR ---
NOTIFIED DR Lio CLEMENTE FOR CONSULTATION. SAID TO SEE PATIENT LATER
[2018-10-22] MEDS: SODIUM CHLORIDE 0.9% 1000ML 1,000 ML IV SCH ×8 (02:30→17:48)
[2018-10-22 04:00] VITALS: BP 93/50
[2018-10-22] MEDS: HYDROMORPHONE 2MG/ML 2 MG/ML ML IV PRN ×3 (08:29→19:59)
[2018-10-22] MEDS: ONDANSETRON HCL INJ 2MG/ML 2ML 2 MG/ML VIAL IV PRN ×3 (08:38→20:00)
[2018-10-22] MEDS: INSULIN REGULAR, HUMAN 100 UNIT/1 ML 3ML VIAL SQ SCH ×4 (08:38→21:00)
[2018-10-22 08:55] VITALS: BP 124/67
--- NOTE | 2018-10-22 11:08 | History and Physical ---
REASON FOR ADMISSION: Pancreatitis. HISTORY OF PRESENT ILLNESS: The patient is a 43-year-old gentleman with a history of pancreatitis in the past, who presented with abdominal pain and was found to have pancreatitis and dehydration, so he has been admitted for further evaluation. PAST MEDICAL HISTORY: Significant for diabetes and pancreatitis. MEDICATIONS: See MAR. ALLERGIES: VANCOMYCIN. SOCIAL HISTORY: Nonsmoker. FAMILY HISTORY: Hypertension. PHYSICAL EXAMINATION VITAL SIGNS: Temperature 97.7, pulse 86, blood pressure 93/50, sats 96% on room air. GENERAL: He is in no apparent distress, lying in bed. LUNGS: Clear to auscultation bilaterally. NECK: Supple. CARDIOVASCULAR: Regular rate and rhythm. ABDOMEN: Soft, but he is tender in the midepigastric area with no peritoneal signs. EXTREMITIES: No clubbing or cyanosis. NEUROLOGIC: Nonfocal. ASSESSMENT AND PLAN 1. Abdominal pain. We will continue with pain medicine. 2. Pancreatitis. Continue with his medication. 3. Dehydration. Continue with IV fluids. 4. Diabetes. Continue with sliding scale insulin. Please see hospital chart for full details. Job#: [id number] KHANH
[2018-10-22 11:58] VITALS: BP 114/61
[2018-10-22 16:36] VITALS: BP 121/67
[2018-10-22] MEDS: MEROPENEM 1GM 100 ML IV SCH (18:55)
[2018-10-22 20:00] VITALS: BP 125/71
--- NOTE | 2018-10-22 20:00 | NUR ---
Received change of shift report from AM nurse. Walking rounds completed.
[2018-10-23] VITALS (7 sets, daily range): BP systolic 132–149; BP diastolic 68–83
[2018-10-23] MEDS: SODIUM CHLORIDE 0.9% 1000ML 1,000 ML IV SCH ×4 (00:23→23:55)
[2018-10-23] MEDS: MEROPENEM 1GM 100 ML IV SCH ×3 (02:00→17:00)
[2018-10-23] MEDS: HYDROMORPHONE 2MG/ML 2 MG/ML ML IV PRN ×4 (04:33→22:10)
[2018-10-23] MEDS: ONDANSETRON HCL INJ 2MG/ML 2ML 2 MG/ML VIAL IV PRN (04:33)
--- NOTE | 2018-10-23 04:51 | NUR ---
Received change of shift report from GELA peña Walking rounds completed. Addendum: 10/23/18 at 0453 by Fabiola Soliz RN duplicate
--- NOTE | 2018-10-23 06:00 | NUR ---
Patient resting quitly in bed with no c/o at this time. Continue monitor.
[2018-10-23 06:43] LABS: BASOPHILS % 0.6 % (0.0-1.0); EOSINOPHILS # (AUTO) 0.2 (0.0-0.4); EOSINOPHILS % 2.9 % (0.0-6.0); HEMATOCRIT 40.8 % (38.2-49.6); HEMOGLOBIN 14.4 g/dL (14.0-18.0); LYMPHOCYTES # (AUTO) 1.4 (1.0-3.2); LYMPHOCYTES % 22.8 % (18.0-39.1); MEAN CORPUSCULAR HEMOGLOBIN 26.8 pg (28-32); MEAN CORPUSCULAR HGB CONC 35.3 g/dL (31-35); MEAN CORPUSCULAR VOLUME 75.8 fL (81-99); MONOCYTES # (AUTO) 0.5 (0.2-0.8); MONOCYTES % 8.3 % (4.4-11.3); NEUTROPHILS # (AUTO) 4.1 (2.1-6.9); NEUTROPHILS % 65.1 % (38.7-80.0); PLATELET COUNT 173 x10e3/uL (140-360); RED BLOOD COUNT 5.38 x10e6/uL (4.3-5.7); RED CELL DISTRIBUTION WIDTH 15.6 % (11.7-14.4)
--- NOTE | 2018-10-23 07:04 | NUR ---
Received patient mid fowlers position, side rails upx2, call light within reach, family at bedside. AAOX4 to time, person, place, situation. Respirations even and unlabored. NS 150ml/hr. Instructed patient to use call light for assistance. Voiced understanding.
[2018-10-23 07:11] LABS: ALANINE AMINOTRANSFERASE 36 IU/L (0-55); ALBUMIN/GLOBULIN RATIO 1.1 (0.8-2.0); ALKALINE PHOSPHATASE 102 IU/L (40-150); AMYLASE 141 U/L (25-125); ANION GAP 11.8 mmol/L (8-16); BLOOD UREA NITROGEN 9 mg/dL (7-26); BUN/CREATININE RATIO 13 (6-25); CALCIUM 8.4 mg/dL (8.4-10.2); CARBON DIOXIDE 21 mmol/L (22-29); CHLORIDE 111 mmol/L (98-107); EST GLOMERULAR FILTRATION RATE > 60 ML/MIN (60-); GLUCOSE 145 mg/dL (74-118); LIPASE 108 U/L (8-78); POTASSIUM 3.8 mmol/L (3.5-5.1); SODIUM 140 mmol/L (136-145)
[2018-10-23] MEDS: INSULIN REGULAR, HUMAN 100 UNIT/1 ML 3ML VIAL SQ SCH ×4 (07:30→21:00)
[2018-10-23] MEDS ORDERED: PANTOPRAZOLE SOD 40 MG TABEC PO SCH (07:30)
[2018-10-23 07:34] LABS: MAGNESIUM 2.1 MG/DL (1.3-2.1)
--- NOTE | 2018-10-23 11:45 | NUR ---
CASE MANAGEMENT INITIAL ASSESSMENT Patient lives: with his and children Admit/Transfer: Admit Hospital/ER visits since last admit: No POA/Emergency contact: Jessica Trejo Current/Previous Home Health: Previous HH, [facility] PCP/Follow-up Care: Dr. 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 Were changes made in your medications when you were in the hospital on [date of index hospitalization]? Yes No Not sure Explain: Note: If no or not sure, please skip to question d b. Did you understand the changes? Yes No Explain: c. Were you able to obtain your new medications right away? Yes No n/a SNF only Explain: d. Were you able to take your medications like the doctor wanted you to? Yes No Explain: e. Did the hospital give you an accurate, easy to understand list of medications when you left? 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
--- NOTE | 2018-10-23 14:20 | NUR ---
Visit made by the Spiritual Care Department Pastoral Visitor, Adriana Arboleda. Pt sleeping soundly and no family present. Pastoral Visitor left a card describing availability of general accountant and instructions on how to contact a general accountant. KIRAN ELKINS Heel Blacker Spiritual Care Department O: [phone] Pager: [phone] ([phone] number calling from)
--- NOTE | 2018-10-23 19:20 | NUR ---
Report given to oncoming nurse. No s/s of acute distress noted.
--- NOTE | 2018-10-23 22:10 | NUR ---
PATIENT C/O PAIN TO THE LOWER BACK WITH PAIN SCORE #8, MEDICATED WITH DILAUDID ORDERED. CALL LIGHT WITHIN EASY REACH, INSTRUCTED TO CALL FOR ASSISTANCE NEEDED.
[2018-10-24] VITALS: BP 131/79
[2018-10-24] MEDS: MEROPENEM 1GM 100 ML IV SCH ×2 (02:17→10:50)
[2018-10-24] MEDS: HYDROMORPHONE 2MG/ML 2 MG/ML ML IV PRN (02:18)
--- NOTE | 2018-10-24 02:20 | NUR ---
FAMILY MEMBERS IN THE ROOM WITH THE PATIENT, NO RESPIRATORY DISTRESS OBSERVED. HE C/O PAIN TO THE LOWER BACK, MEDICATED WITH DILAUDID ORDERED. CALL LIGHT WITHIN EASY REACH, INSTRUCTED TO CALL FOR ASSISTANCE NEEDED.
[2018-10-24 04:00] VITALS: BP 146/64
--- NOTE | 2018-10-24 04:58 | NUR ---
PATIENT CONDITION REMAINS STABLE, NO RESPIRATORY DISTRESS OBSERVED. DR MCCLAIN SAW THE PATIENT, PLAN IS TO ADVANCE HIS DIET TO REGULAR DIET AND IF HE TOLERATES THE DIET, THE DAY SHIFT NURSE SHOULD CALL MD AFTER LUNCH REGARDING DISCHARGE ORDER.
[2018-10-24] MEDS ORDERED: TRAMADOL HCL 50 MG TAB PO PRN (05:00)
[2018-10-24 06:46] LABS: AMYLASE 48 U/L (25-125); LIPASE 18 U/L (8-78)
[2018-10-24] MEDS: INSULIN REGULAR, HUMAN 100 UNIT/1 ML 3ML VIAL SQ SCH ×2 (08:30→11:30)
[2018-10-24 08:45] VITALS: BP 146/64
[2018-10-24 09:02] VITALS: BP 132/63
[2018-10-24 12:00] VITALS: BP 144/81
--- NOTE | 2018-10-24 15:20 | NUR ---
Telephone orders rec'd to discharge patient. Discharge instructions given to patient, pt verbalized understanding. No new Rx's given. IV removed with tip intact, dressing applied. All personal belongings gathered and packed. Pt escorted to personal vehicle in stable condition with all personal belongings via wheelchair.
== END 2018-10-24 15:00 | disposition home or self-care (01) | DRG 439 ==
LOC: ER 22:41 → ERHOLD 10-22 01:06 → MED/SURG 10-22 01:53
PROVIDERS: ADMIT Internal Medicine; ATTEND Internal Medicine
DX: K85.00 Idiopathic acute pancreatitis without necrosis or infection (principal); E87.1 Hypo-osmolality and hyponatremia; I10 Essential (primary) hypertension; E11.65 Type 2 diabetes mellitus with hyperglycemia; K21.9 Gastro-esophageal reflux disease without esophagitis; Z90.49 Acquired absence of other specified parts of digestive tract; Z89.512 Acquired absence of left leg below knee; E86.0 Dehydration; E11.51 Type 2 diabetes mellitus with diabetic peripheral angiopathy without gangrene; Z88.1 Allergy status to other antibiotic agents; Z79.84 Long term (current) use of oral hypoglycemic drugs
CPT/HCPCS: 36415; 74177; 80053; 81001; 82150; 82550; 82553; 82948; 83690; 83735; 84478; 84484; 85025; 93005; 96367; 96372; 96376; 99284; J2405; J7030; Q9967

== ENCOUNTER 2018-11-25 14:26 | Emergency (ER) | payer SELFPAY ==
[~2018-11-25] VITALS: Ht 182.9 cm; Wt 133.8 kg
--- OUTSIDE RECORDS SUMMARY | 2018-11-25 14:31 | XMS REPORT | Clinical Summary ---
Author Author [facility] Organization [facility] Address Unknown Phone Unavailable Care Team Providers Care Education Specialist Name Role Phone Ghulam Bearden MD PCP [...] Overview: Added automatically from request for surgery [id number] Peripheral vascular disease, unspecified 07/01/2018 Overview: Added automatically from request for surgery [id number] Encounters Care Team Description Date Type Specialty [...] (Primary Dx) 06/30/2018 Office Visit Cardiovascular after 11/24/2017 Family History Medical History Relation Name Comments [...] POC GLUCOSE Routine 07/07/2018 10:08 AM CDT ME AN ELECTIVE Routine 07/07/2018 ENDOTRACHEAL AIRWAY 8:30 [...] A1C Routine 07/06/2018 11:05 AM CDT after 11/24/2017 Results * POC glucose (07/13/2018 3:49 PM CDT) Only the most recent of 27 results within the time period is included. POC glucose 163 (H) 65 - 100 mg/dL [facility] Comment: PATHOLOGY AND Meter ID: [id number] GENOMIC MEDICINE Trim Machine Adjuster: Fabiola Segura Performing Organization Address City/[facility]/Zipcode Phone Number [address] [place] [address] PATHOLOGY AND [employer] MEDICINE * Estimated GFR (07/10/2018 5:57 AM CDT) Only the most recent of 4 results within the time period is included. Estimated GFR >=90 mL/min/1.73 m2 [facility] Comment: PATHOLOGY AND CatergoryUnitsInte MovieSet MEDICINE rpretation G1 >=90 Normal or high G2 60-89Mildly decreased T4d14-55 Mildly to moderately decreased D8e79-69 Moderately to severely decreased G4 15-29Severely decreased G5 <15Kidney failure The eGFR was calculated using the Chronic Kidney Disease Epidemiology Collaboration (CKD-EPI) equation. Interpretation is based on recommendations of the National Kidney Foundation-Kidney Disease Outcomes Quality Initiative (NKF-KDOQI) published in 2014. Specimen Plasma specimen Performing Organization Address City/[facility] Centercode Phone Number [place] [phone] [facility]. [place] [phone] PATHOLOGY AND [employer] MEDICINE * CBC with platelet and differential (07/10/2018 5:57 AM CDT) Only the most recent of 4 results within the time period is included. WBC 6.7 4.2 - 11.0 k/uL [facility] PATHOLOGY AND GENOMIC MEDICINE RBC 3.75 (L) 4.04 - 5.86 m/uL [facility] PATHOLOGY AND GENOMIC MEDICINE HGB 9.6 (L) 13.0 - 17.3 g/dL [facility] PATHOLOGY AND GENOMIC MEDICINE HCT 30.0 (L) 34.0 - 45.0 % [facility] PATHOLOGY AND GENOMIC MEDICINE MCV 80.0 80.0 - 98.0 fL [facility] PATHOLOGY AND GENOMIC MEDICINE MCH 25.6 (L) 27.0 - 34.0 pg [facility] PATHOLOGY AND GENOMIC MEDICINE MCHC 32.0 31.5 - 36.5 g/dL [facility] PATHOLOGY AND GENOMIC MEDICINE RDW - SD 42.5 37.0 - 51.0 fL [facility] PATHOLOGY AND GENOMIC MEDICINE MPV 10.3 7.4 - 10.4 fL [facility] PATHOLOGY AND GENOMIC MEDICINE Platelet count 187 150 - 400 k/uL [facility] PATHOLOGY AND GENOMIC MEDICINE Nucleated RBC 0.00 /100 WBC [facility] PATHOLOGY AND GENOMIC MEDICINE Neutrophils 63.1 36.0 - 66.0 % [facility] PATHOLOGY AND GENOMIC MEDICINE Lymphocytes 20.7 (L) 24.0 - 44.0 % [facility] PATHOLOGY AND GENOMIC MEDICINE Monocytes 12.1 (H) 0.0 - 6.0 % [facility] PATHOLOGY AND GENOMIC MEDICINE Eosinophils 3.1 0.0 - 6.0 % [facility] PATHOLOGY AND GENOMIC MEDICINE Basophils 0.4 0.0 - 1.2 % [facility] PATHOLOGY AND GENOMIC MEDICINE Immature granulocytes 0.6 0.0 - 1.0 % [facility] PATHOLOGY [facility] MovieSet MEDICINE Specimen Blood Performing Organization Address City/[facility] Treatment Centercode Phone Number [address] [place] [address] PATHOLOGY AND MovieSet [facility] * Basic metabolic panel (07/10/2018 5:57 AM CDT) Only the most recent of 4 results within the time period is included. Sodium 139 135 - 150 mEq/L [facility] PATHOLOGY AND GENOMIC MEDICINE Potassium 4.5 3.5 - 5.0 mEq/L [facility] PATHOLOGY AND GENOMIC MEDICINE Chloride 101 98 - 112 mEq/L [facility] PATHOLOGY AND GENOMIC MEDICINE CO2 29 24 - 31 mmol/L [facility] PATHOLOGY AND GENOMIC MEDICINE Anion gap 9@ANIO 7 - 15 mEq/L [facility] PATHOLOGY AND GENOMIC MEDICINE BUN 18 7 - 18 mg/dL [facility] PATHOLOGY AND GENOMIC MEDICINE Creatinine 0.80 0.70 - 1.20 mg/dL [facility] PATHOLOGY AND [employer] MEDICINE Glucose 142 (H) 65 - 100 mg/dL [facility] PATHOLOGY AND GENOMIC MEDICINE Calcium 9.0 8.3 - 10.2 mg/dL [facility] PATHOLOGY AND [employer] MEDICINE Specimen Plasma specimen Performing Organization Address City/[facility]/Zipcode Phone Number [address] [address] PATHOLOGY AND GENOMIC MEDICINE * XR Knee [...] abnormality or malalignment noted. IMPRESSION: As above [facility]-[id number] Procedure Note Interface, Radiology Results Incoming - [...] abnormality or malalignment noted. IMPRESSION: As above [facility]-[id number] Performing Organization Address City/State/Zipcode Phone Number [facility] [address] [place] [address] * Surgical pathology request (07/07/2018 10:44 AM CDT) [facility] PATHOLOGY AND GENOMIC MEDICINE Surgical pathology report See link below for PDF Lab [facility] Report PATHOLOGY AND GENOMIC MEDICINE Result status This is Final Report for [facility] [id number] PATHOLOGY AND GENOMIC MEDICINE Performing Organization Address City/State/[facility] Centercode Phone Number [facility] [address] [place] [address] PATHOLOGY AND GENOMIC MEDICINE * XR Chest 2 Vw (07/06/2018 12:03 PM CDT) Narrative Performed At EXAMINATION:XR CHEST 2 VW HM [facility] CLINICAL HISTORY:preoperative clearance COMPARISON:None IMPRESSION: 1.Heart size is within normal limits. Vessels are not congested. 2.No infiltrates or effusions are seen. [id number] Procedure Note Interface, Radiology Results Incoming - 07/06/2018 12:46 PM CDT EXAMINATION: XR CHEST 2 VW CLINICAL HISTORY: preoperative clearance COMPARISON: None IMPRESSION: 1. Heart size is within normal limits. Vessels are not congested. 2. No infiltrates or effusions are seen. [id number] Performing Organization Address [facility]/Zipcovt Phone Number [facility] [address] [place] [address] * ECG 12 lead (07/06/2018 11:21 AM CDT) Ventricular rate 78 [facility] Atrial rate 78 [facility] ME interval 148 [facility] QRSD interval 86 [facility] QT interval 372 [facility] QTC interval 424 [facility] P axis 1 10 [facility] QRS axis 1 52 [facility] T wave axis 72 HM MUSE EKG impression Normal sinus rhythm-Normal [facility] MUSE ECG-No previous ECGs available- Performing Organization Address [facility] Centercovt Phone Number [facility] [address] [place] [address] * Partial thromboplastin time, activated (07/06/2018 11:05 AM CDT) PTT 34.1 23.0 - 36.0 sec [facility] Comment: PATHOLOGY AND PTT therapeutic range for GENOMIC MEDICINE unfractionated heparin is 61.0-112.0 seconds which corresponds to Anti-Xa 0.3-0.7 U/ml. Note:Change in Panic Value The PTT Panic Value is changing from 110 sec. to 100 sec. due to new instrumentation and reagents. Correlation studies have been performed to validate this result. Specimen Blood Performing Organization Address [facility] Centercovt Phone Number [facility] [address] [place] [address] PATHOLOGY AND GENOMIC MEDICINE * Prothrombin time with INR (07/06/2018 11:05 AM CDT) Prothrombin time 13.3 12.0 - 15.0 sec [facility] PATHOLOGY AND GENOMIC MEDICINE INR 1.00 0.92 - 1.12 [facility] Comment: PATHOLOGY AND For patients [...] Blood Performing Organization Address City/State/Zipcode Phone Number [facility] [address] [place] [phone] PATHOLOGY AND GENOMIC MEDICINE * Type and screen (07/06/2018 11:05 AM CDT) ABO grouping O [facility] PATHOLOGY AND GENOMIC MEDICINE Rh type NEG [facility] PATHOLOGY AND GENOMIC MEDICINE Antibody screen (gel) NEG [facility] PATHOLOGY AND GENOMIC MEDICINE Specimen Blood Performing Organization Address City/State/Zipcode Phone Number [facility] [address] [place] [address] PATHOLOGY AND GENOMIC MEDICINE * Hemoglobin A1c (07/06/2018 11:05 AM CDT) Hemoglobin A1C 7.1 (H) 4.0 - 6.0 % [facility] Comment: PATHOLOGY AND GENOMIC MEDICINE Less than 6% - Goal of therapy for Type II Diabetes Less than 7%-Goal of therapy for Type I Diabetes Less than 8%-Accepta ble control for Type I or Type II Diabetes Greater than 8%-Unacceptabl e control; action indicated. (ADA94) Specimen Blood Performing Organization Address [facility] Centercode Phone Number [facility] [address] [place] [phone] PATHOLOGY AND GENOMIC MEDICINE after 11/24/2017 Insurance Payer Benefit Subscriber ID Type Phone Address Plan / Group BCBS BCBS xxxxxxxxxxxx PPO CHOICE PPO/HERBIE MEADOWS PPO Advance Directives Patient has advance care planning documents on file. For more information, plefior e contact: Cesar [place] [address] [place] [phone]
[2018-11-25 16:30] LABS: BASOPHILS # (AUTO) 0.1 (0.0-0.1); BASOPHILS % 0.6 % (0.0-1.0); EOSINOPHILS # (AUTO) 0.1 (0.0-0.4); HEMATOCRIT 50.9 % (38.2-49.6); HEMOGLOBIN 17.3 g/dL (14.0-18.0); LYMPHOCYTES # (AUTO) 2.1 (1.0-3.2); LYMPHOCYTES % 16.6 % (18.0-39.1); MEAN CORPUSCULAR HEMOGLOBIN 26.3 pg (28-32); MEAN CORPUSCULAR VOLUME 77.5 fL (81-99); MONOCYTES % 8.2 % (4.4-11.3); NEUTROPHILS # (AUTO) 9.1 (2.1-6.9); NEUTROPHILS % 73.2 % (38.7-80.0); PLATELET COUNT 220 x10e3/uL (140-360); RED BLOOD COUNT 6.57 x10e6/uL (4.3-5.7); RED CELL DISTRIBUTION WIDTH 15.5 % (11.7-14.4)
[2018-11-25 16:46] LABS: ALANINE AMINOTRANSFERASE 29 IU/L (0-55); ALBUMIN 3.8 g/dL (3.5-5.0); ALBUMIN/GLOBULIN RATIO 0.9 (0.8-2.0); ALKALINE PHOSPHATASE 134 IU/L (40-150); ANION GAP 13.7 mmol/L (8-16); BLOOD UREA NITROGEN 10 mg/dL (7-26); BUN/CREATININE RATIO 12 (6-25); CALCIUM 10.1 mg/dL (8.4-10.2); CARBON DIOXIDE 26 mmol/L (22-29); CHLORIDE 98 mmol/L (98-107); CREATININE, SERUM 0.85 mg/dL (0.72-1.25); EST GLOMERULAR FILTRATION RATE > 60 ML/MIN (60-); GLUCOSE 255 mg/dL (74-118); POTASSIUM 3.7 mmol/L (3.5-5.1); SODIUM 134 mmol/L (136-145)
[2018-11-25 16:51] LABS: BILIRUBIN,URINE NEGATIVE (NEGATIVE); CLARITY,URINE HAZY (CLEAR); COLOR,URINE YELLOW (YELLOW); KETONES,URINE TRACE (NEGATIVE); LEUKOCYTE ESTERASE ,URINE NEGATIVE (NEGATIVE); NITRITE,URINE NEGATIVE (NEGATIVE); PROTEIN,URINE DIPSTICK 1+ (NEGATIVE); URINE UROBILINOGEN 0.2 mg/dL (0.2 - 1)
[2018-11-25 16:59] LABS: BACTERIA,URINE FEW /HPF; EPITHELIAL CELLS,URINE FEW /LPF; RBC,URINE 0-5 /HPF (0-5); WBC,URINE (MAN) 0-5 /HPF (0-5)
[2018-11-25 17:04] LABS: AMYLASE 92 U/L (25-125); LIPASE 106 U/L (8-78)
--- NOTE | 2018-11-25 18:34 | Diagnostic Imaging Report ---
EXAM: CT Abdomen and Pelvis WITH contrast INDICATION: ^abd pain/HX pancreatitis COMPARISON: CT chest pelvis 10/22/2017. 03/01/2018. TECHNIQUE: Abdomen and pelvis were scanned utilizing a multidetector helical scanner from the lung base to the pubic symphysis after administration of IV contrast. Coronal and sagittal reformations were obtained. Routine protocol was performed. Scan was performed when during portal venous phase. IV CONTRAST: 100 mL of Isovue 370 ORAL CONTRAST: Water COMPLICATIONS: None RADIATION DOSE: Total DLP: 1441.37 mGy*cm Estimated effective dose: (DLP x 0.015 x size factor) mSv CTDIvol has been reviewed. It is below the limits set by the Radiation Protocol Committee (RPC). FINDINGS: LINES and TUBES: None. LOWER THORAX: There is bibasilar atelectasis. HEPATOBILIARY: The liver is diffuse hypodense compared to the spleen, consistent with diffuse hepatic diffuse hepatic steatosis. No focal hepatic lesions. No biliary ductal dilation. GALLBLADDER: There are cholecystectomy clips. SPLEEN: No splenomegaly. PANCREAS: No focal masses or ductal dilatation. Stable subtle inflammatory changes around the pancreatic head. ADRENALS: No adrenal nodules KIDNEYS/URETERS: Kidneys enhance symmetrically. No hydronephrosis. No cystic or solid mass lesions. No stones. GI TRACT: No abnormal distention, wall thickening, or evidence of bowel obstruction. Appendix is normal. PELVIC ORGANS/BLADDER: Unremarkable. LYMPH NODES: No lymphadenopathy. VESSELS: Unremarkable. PERITONEUM / RETROPERITONEUM: No free air or fluid. BONES: Severe degenerative changes in the right hip with possible superimposed chronic fracture deformity. SOFT TISSUES: Unremarkable. IMPRESSION: 1. Interstitial edematous pancreatitis. 2. Diffuse hepatic steatosis. Signed by: Dr. Arjun Schneider M.D. on 11/25/2018 6:30 PM
[2018-11-25] MEDS ORDERED: SODIUM CHLORIDE 0.9% 1000ML 1,000 ML IV SCH (19:44)
[2018-11-25] MEDS ORDERED: ONDANSETRON HCL INJ 2MG/ML 2ML 2 MG/ML VIAL IV PRN (19:45)
[2018-11-25] MEDS ORDERED: MORPHINE SULFATE INJ 4 MG/ML INJ 1ML IV PRN (19:45)
[2018-11-25] MEDS ORDERED: TRAZODONE HCL50 MG PO (19:48)
[2018-11-25] MEDS ORDERED: CLARITHROMYCIN500 MG PO (19:48)
[2018-11-25] MEDS ORDERED: AMOXICILLIN250 MG PO (19:48)
[2018-11-25] MEDS ORDERED: RANITIDINE HCL150 M1 PO (19:48)
[2018-11-25] MEDS ORDERED: OMEPRAZOLE40 MG PO (19:49)
[2018-11-25] MEDS ORDERED: VITAMIN D250000 UNIT PO (19:51)
[2018-11-25] MEDS ORDERED: ULTRAM50 MG PO (19:51)
--- OUTSIDE RECORDS SUMMARY | 2018-11-25 20:18 | XMS REPORT | Clinical Summary ---
Author Author Cesar [facility] Organization [facility] Address Unknown Phone Unavailable Care Team Providers Care Replacer Name Role Phone Ghulam Bearden MD PCP [...] Overview: Added automatically from request for surgery [id number] Peripheral vascular disease, unspecified 07/01/2018 Overview: Added automatically from request for surgery [id number] Encounters Care Team Description Date Type Specialty [...] POC GLUCOSE Routine 07/07/2018 10:08 AM CDT GA AN ELECTIVE Routine 07/07/2018 ENDOTRACHEAL AIRWAY 8:30 [...] glucose 163 (H) 65 - 100 mg/dL [facility] Comment: PATHOLOGY AND Meter ID: [id number] GENOMIC MEDICINE Distribution Manager: Fabiola Segura Performing Organization Address City/[facility]/Zipcode Phone Number [address] [place] [address] PATHOLOGY AND [employer] MEDICINE * Estimated GFR (07/10/2018 5:57 AM CDT) Only the most recent of 4 results within the time period is included. Estimated GFR >=90 mL/min/1.73 m2 [facility] Comment: PATHOLOGY AND CatergoryUnitsInte [employer] MEDICINE rpretation G1 >=90 Normal or high G2 60-89Mildly decreased V7d57-97 Mildly to moderately decreased D8e61-17 Moderately to severely decreased G4 15-29Severely decreased G5 <15Kidney failure The eGFR was calculated using the Chronic Kidney Disease Epidemiology Collaboration (CKD-EPI) equation. Interpretation is based on recommendations of the National Kidney Foundation-Kidney Disease Outcomes Quality Initiative (NKF-KDOQI) published in 2014. Specimen Plasma specimen Performing Organization Address City/[facility] Hospitalcode Phone Number [place] [phone] [facility] [place] [phone] PATHOLOGY AND [employer] MEDICINE * CBC with platelet and differential (07/10/2018 5:57 AM CDT) Only the most recent of 4 results within the time period is included. WBC 6.7 4.2 - 11.0 k/uL [facility] PATHOLOGY AND GENOMIC MEDICINE RBC 3.75 (L) 4.04 - 5.86 m/uL [facility] PATHOLOGY AND GENOMIC MEDICINE HGB 9.6 (L) 13.0 - 17.3 g/dL [facility] PATHOLOGY AND GENOMIC MEDICINE HCT 30.0 (L) 34.0 - 45.0 % [facility] PATHOLOGY AND GENOMIC MEDICINE MCV 80.0 80.0 - 98.0 fL [facility] PATHOLOGY AND GENOMIC MEDICINE MCH 25.6 (L) 27.0 - 34.0 pg [facility] PATHOLOGY AND GENOMIC MEDICINE MCHC 32.0 31.5 - 36.5 g/dL [facility] PATHOLOGY AND GENOMIC MEDICINE RDW - SD 42.5 37.0 - 51.0 fL [facility] PATHOLOGY AND GENOMIC MEDICINE MPV 10.3 7.4 - 10.4 fL [facility] PATHOLOGY AND GENOMIC MEDICINE Platelet count 187 150 - 400 k/uL [facility] PATHOLOGY AND GENOMIC MEDICINE Nucleated RBC 0.00 /100 WBC [facility] PATHOLOGY AND GENOMIC MEDICINE Neutrophils 63.1 36.0 - 66.0 % [facility] PATHOLOGY AND GENOMIC MEDICINE Lymphocytes 20.7 (L) 24.0 - 44.0 % [facility] PATHOLOGY AND GENOMIC MEDICINE Monocytes 12.1 (H) 0.0 - 6.0 % [facility] PATHOLOGY AND GENOMIC MEDICINE Eosinophils 3.1 0.0 - 6.0 % [facility] PATHOLOGY AND GENOMIC MEDICINE Basophils 0.4 0.0 - 1.2 % [facility] PATHOLOGY AND GENOMIC MEDICINE Immature granulocytes 0.6 0.0 - 1.0 % [facility] PATHOLOGY [facility] [employer] MEDICINE Specimen Blood Performing Organization Address City/[facility] Hospitalcode Phone Number [address] [place] [address] PATHOLOGY AND Blue Source [facility] * Basic metabolic panel (07/10/2018 5:57 AM CDT) Only the most recent of 4 results within the time period is included. Sodium 139 135 - 150 mEq/L [facility] PATHOLOGY AND GENOMIC MEDICINE Potassium 4.5 3.5 - 5.0 mEq/L [facility] PATHOLOGY AND GENOMIC MEDICINE Chloride 101 98 - 112 mEq/L [facility] PATHOLOGY AND GENOMIC MEDICINE CO2 29 24 - 31 mmol/L [facility] PATHOLOGY AND GENOMIC MEDICINE Anion gap 9@ANIO 7 - 15 mEq/L [facility] PATHOLOGY AND GENOMIC MEDICINE BUN 18 7 - 18 mg/dL [facility] PATHOLOGY AND GENOMIC MEDICINE Creatinine 0.80 0.70 - 1.20 mg/dL [facility] PATHOLOGY AND [employer] MEDICINE Glucose 142 (H) 65 - 100 mg/dL [facility] PATHOLOGY AND GENOMIC MEDICINE Calcium 9.0 8.3 - 10.2 mg/dL [facility] PATHOLOGY AND [employer] MEDICINE Specimen Plasma specimen Performing Organization Address City/[facility]/Zipcode Phone Number [address] [place] [address] PATHOLOGY AND GENOMIC MEDICINE * XR Knee [...] abnormality or malalignment noted. IMPRESSION: As above [facility]-[id number] Procedure Note Interface, Radiology Results Incoming - [...] abnormality or malalignment noted. IMPRESSION: As above [facility]-[id number] Performing Organization Address City/State/Zipcode Phone Number [facility] [address] [place] [address] * Surgical pathology request (07/07/2018 10:44 AM CDT) [facility]OLOGY AND GENOMIC MEDICINE Surgical pathology report See link below for PDF Lab [facility] Report PATHOLOGY AND GENOMIC MEDICINE Result status This is Final Report for [facility] [id number] PATHOLOGY AND GENOMIC MEDICINE Performing Organization Address City/State/[facility] Hospitalcode Phone Number [facility] [address] [facility] [place] [address] PATHOLOGY AND GENOMIC MEDICINE * XR Chest 2 Vw (07/06/2018 12:03 PM CDT) Narrative Performed At EXAMINATION:XR CHEST 2 VW HM [facility] CLINICAL HISTORY:preoperative clearance COMPARISON:None IMPRESSION: 1.Heart size is within normal limits. Vessels are not congested. 2.No infiltrates or effusions are seen. [id number] Procedure Note Interface, Radiology Results Incoming - 07/06/2018 12:46 PM CDT EXAMINATION: XR CHEST 2 VW CLINICAL HISTORY: preoperative clearance COMPARISON: None IMPRESSION: 1. Heart size is within normal limits. Vessels are not congested. 2. No infiltrates or effusions are seen. [id number] Performing Organization Address [facility]/[employer] Phone Number [facility] [address] [place] [address] * ECG 12 lead (07/06/2018 11:21 AM CDT) Ventricular rate 78 [facility] MUSE Atrial rate 78 [facility] GA interval 148 [facility] QRSD interval 86 [facility] QT interval 372 [facility] QTC interval 424 [facility] P axis 1 10 [facility] QRS axis 1 52 [facility] T wave axis 72 [facility] MUSE EKG impression Normal sinus rhythm-Normal [facility] MUSE ECG-No previous ECGs available- Performing Organization Address [facility] Hospitalcoil Phone Number [facility] [address] [place] [address] * Partial thromboplastin time, activated (07/06/2018 11:05 AM CDT) PTT 34.1 23.0 - 36.0 sec [facility] Comment: PATHOLOGY AND PTT therapeutic range for GENOMIC MEDICINE unfractionated heparin is 61.0-112.0 seconds which corresponds to Anti-Xa 0.3-0.7 U/ml. Note:Change in Panic Value The PTT Panic Value is changing from 110 sec. to 100 sec. due to new instrumentation and reagents. Correlation studies have been performed to validate this result. Specimen Blood Performing Organization Address [facility] Hospitalcoil Phone Number [facility] [address] [place] [address] PATHOLOGY AND GENOMIC MEDICINE * Prothrombin time with INR (07/06/2018 11:05 AM CDT) Prothrombin time 13.3 12.0 - 15.0 sec [facility] PATHOLOGY AND GENOMIC MEDICINE INR 1.00 0.92 - 1.12 [facility] Comment: PATHOLOGY AND For patients [...] Blood Performing Organization Address City/State/Zipcode Phone Number [facility] [address] [place] [phone] PATHOLOGY AND GENOMIC MEDICINE * Type and screen (07/06/2018 11:05 AM CDT) ABO grouping O [facility] OF PATHOLOGY AND GENOMIC MEDICINE Rh type NEG [facility] PATHOLOGY AND GENOMIC MEDICINE Antibody screen (gel) NEG [facility] PATHOLOGY AND GENOMIC MEDICINE Specimen Blood Performing Organization Address City/State/Zipcode Phone Number [facility] [address] [place] [address] PATHOLOGY AND GENOMIC MEDICINE * Hemoglobin A1c (07/06/2018 11:05 AM CDT) Hemoglobin A1C 7.1 (H) 4.0 - 6.0 % [facility] Comment: PATHOLOGY AND GENOMIC MEDICINE Less than 6% - Goal of therapy for Type II Diabetes Less than 7%-Goal of therapy for Type I Diabetes Less than 8%-Accepta ble control for Type I or Type II Diabetes Greater than 8%-Unacceptabl e control; action indicated. (ADA94) Specimen Blood Performing Organization Address [facility] Hospitalcode Phone Number [facility] OF [address] [place] [phone] PATHOLOGY AND GENOMIC MEDICINE after 11/24/2017 Insurance Payer Benefit Subscriber ID Type Phone Address Plan / Group BCBS BCBS xxxxxxxxxxxx PPO CHOICE PPO/HERBIE MEADOWS PPO Advance Directives Patient has advance care planning documents on file. For more information, plefior e contact: Cesar Sev[place] [address] [place] [phone]
[2018-11-25 21:20] VITALS: BP 133/83
[2018-11-25] MEDS ORDERED: SODIUM CHLORIDE 0.9% 50ML 50 ML ONE (22:53)
[2018-11-25] MEDS ORDERED: IOPAMIDOL 370 MG/ML 200 ML INFUS..BTL INJ ONE (22:53)
== END 2018-11-25 21:33 | disposition home or self-care (01) ==
LOC: ER 14:26 → ERHOLD 20:14 → UNDOADMIN 20:14 → ER 21:33
DX: R10.11 Right upper quadrant pain (principal); R10.31 Right lower quadrant pain; R11.2 Nausea with vomiting, unspecified; K86.1 Other chronic pancreatitis; I10 Essential (primary) hypertension; E11.9 Type 2 diabetes mellitus without complications; Z89.512 Acquired absence of left leg below knee
CPT/HCPCS: 36415; 74177; 80053; 81001; 82150; 83690; 85025; 93005; 96374; 99284; J2270; J2405; J7030; Q9967

== ENCOUNTER 2019-11-20 17:35 | Observation (INO) | payer BC, OTHER ==
[~2019-11-20] VITALS: Ht 180.3 cm; Wt 136.1 kg
[~2019-11-20 17:35] MED LIST changes: +AMOXICILLIN250 MG PO; +CLARITHROMYCIN500 MG PO; +OMEPRAZOLE40 MG PO; +RANITIDINE HCL150 M1 PO; +TRAZODONE HCL50 MG PO; +ULTRAM50 MG PO; +VITAMIN D250000 UNIT PO
[2019-11-20] MEDS ORDERED: ONDANSETRON HCL INJ 2MG/ML 2ML 2 MG/ML VIAL IV STA (17:46)
[2019-11-20] MEDS ORDERED: SODIUM CHLORIDE 0.9% 1000ML 1,000 ML IV STA (17:46)
[2019-11-20 20:01] LABS: BASOPHILS # (AUTO) 0.1 (0.0-0.1); BASOPHILS % 0.7 % (0.0-1.0); EOSINOPHILS # (AUTO) 0.3 (0.0-0.4); EOSINOPHILS % 2.7 % (0.0-6.0); HEMATOCRIT 51.4 % (38.2-49.6); HEMOGLOBIN 17.9 g/dL (14.0-18.0); LYMPHOCYTES # (AUTO) 3.1 (1.0-3.2); LYMPHOCYTES % 24.6 % (18.0-39.1); MEAN CORPUSCULAR HEMOGLOBIN 28.3 pg (28-32); MEAN CORPUSCULAR HGB CONC 34.8 g/dL (31-35); MEAN CORPUSCULAR VOLUME 81.3 fL (81-99); MONOCYTES % 7.8 % (4.4-11.3); NEUTROPHILS # (AUTO) 7.9 (2.1-6.9); PLATELET COUNT 204 x10e3/uL (140-360); RED BLOOD COUNT 6.32 x10e6/uL (4.3-5.7); RED CELL DISTRIBUTION WIDTH 13.6 % (11.7-14.4)
[2019-11-20 20:17] LABS: ALANINE AMINOTRANSFERASE 30 IU/L (0-55); ALBUMIN 3.8 g/dL (3.5-5.0); ALBUMIN/GLOBULIN RATIO 0.9 (0.8-2.0); ALKALINE PHOSPHATASE 130 IU/L (40-150); ANION GAP 13.9 mmol/L (8-16); BLOOD UREA NITROGEN 9 mg/dL (7-26); BUN/CREATININE RATIO 11 (6-25); CALCIUM 9.9 mg/dL (8.4-10.2); CARBON DIOXIDE 26 mmol/L (22-29); CHLORIDE 101 mmol/L (98-107); CREATININE, SERUM 0.85 mg/dL (0.72-1.25); EST GLOMERULAR FILTRATION RATE > 60 ML/MIN (60-); GLUCOSE 244 mg/dL (74-118); POTASSIUM 3.9 mmol/L (3.5-5.1); SODIUM 137 mmol/L (136-145)
[2019-11-20] MEDS ORDERED: PANTOPRAZOLE 40 MG 10ML VIAL IV STA (21:44)
[2019-11-20] MEDS ORDERED: MORPHINE SULFATE INJ 4 MG/ML INJ 1ML IV ONE (21:45)
--- NOTE | 2019-11-20 22:08 | Diagnostic Imaging Report ---
EXAM: CT Abdomen and Pelvis WITH contrast INDICATION: Right upper quadrant pain COMPARISON: Abdominal CT 11/25/2018. TECHNIQUE: Abdomen and pelvis were scanned utilizing a multidetector helical scanner from the lung base to the pubic symphysis after administration of IV contrast. Coronal and sagittal reformations were obtained. Routine protocol was performed. Scan was performed when during portal venous phase. IV CONTRAST: 100 mL of Isovue 370 ORAL CONTRAST: Water COMPLICATIONS: None RADIATION DOSE: Total DLP: 972 mGy*cm Estimated effective dose: (DLP x 0.015 x size factor) mSv CTDIvol has been reviewed. It is below the limits set by the Radiation Protocol Committee (RPC). Dose modulation, iterative reconstruction, and/or weight based adjustment of the mA/kV was utilized to reduce the radiation dose to as low as reasonably achievable. FINDINGS: LINES and TUBES: None. LOWER THORAX: Unremarkable HEPATOBILIARY: Diffuse hepatic hypoattenuation. No focal hepatic lesions. No biliary ductal dilation. GALLBLADDER: There are cholecystectomy clips. SPLEEN: No splenomegaly. PANCREAS: Subtle fat stranding around the pancreatic head and uncinate. Mild prominence of a few peripancreatic lymph nodes around the pancreatic head. No focal masses or ductal dilatation. ADRENALS: No adrenal nodules KIDNEYS/URETERS: Kidneys enhance symmetrically. No hydronephrosis. No cystic or solid mass lesions. No stones. GI TRACT: No abnormal distention, wall thickening, or evidence of bowel obstruction. Appendix is normal. PELVIC ORGANS/BLADDER: Unremarkable. LYMPH NODES: No lymphadenopathy. VESSELS: Scattered mild arterial vascular calcifications. PERITONEUM / RETROPERITONEUM: No free air or fluid. BONES: There are degenerative changes in the spine. Chronic right proximal femoral deformity with secondary degenerative changes in the right hip.. SOFT TISSUES: Unremarkable. IMPRESSION: 1. Subtle findings of acute interstitial edematous pancreatitis. No fluid collections. Recommend follow-up contrast enhanced abdominal CT pancreas protocol in 3 months. 2. Hepatic steatosis. Signed by: El Santillan DO on 11/20/2019 10:05 PM
[2019-11-20] MEDS ORDERED: SODIUM CHLORIDE 0.9% 50ML 50 ML ONE (22:10)
[2019-11-20] MEDS ORDERED: IOPAMIDOL 370 MG/ML 200 ML INFUS..BTL INJ ONE (22:11)
[2019-11-20] MEDS ORDERED: SODIUM CHLORIDE 0.9% 1000ML 1,000 ML ONE (22:13)
[2019-11-21 00:30] LABS: CLARITY,URINE CLEAR (CLEAR); COLOR,URINE YELLOW (YELLOW); LEUKOCYTE ESTERASE ,URINE NEGATIVE (NEGATIVE); NITRITE,URINE NEGATIVE (NEGATIVE); PROTEIN,URINE DIPSTICK 2+ (NEGATIVE)
[2019-11-21 00:31] LABS: BILIRUBIN,URINE 1+ (NEGATIVE); KETONES,URINE NEGATIVE (NEGATIVE); URINE UROBILINOGEN 0.2 mg/dL (0.2 - 1)
[2019-11-21 00:36] LABS: BACTERIA,URINE FEW /HPF; EPITHELIAL CELLS,URINE FEW /LPF
[2019-11-21] MEDS ORDERED: SODIUM CHLORIDE 0.9% 1000ML 1,000 ML IV ONE (00:45)
[2019-11-21] MEDS ORDERED: MORPHINE SULFATE INJ 4 MG/ML INJ 1ML ONE (00:48)
[2019-11-21] MEDS ORDERED: ONDANSETRON HCL INJ 2MG/ML 2ML 2 MG/ML VIAL ONE (00:48)
[2019-11-21] MEDS: MORPHINE SULFATE INJ 4 MG/ML INJ 1ML IV PRN ×4 (00:54→19:37)
[2019-11-21] MEDS: ONDANSETRON HCL INJ 2MG/ML 2ML 2 MG/ML VIAL IV PRN ×4 (00:54→19:37)
--- NOTE | 2019-11-21 07:09 | NUR ---
report received from Júnior HASSAN
[2019-11-21] MEDS ORDERED: TRAMADOL HCL 50 MG TAB PO PRN (09:00)
[2019-11-21] MEDS ORDERED: ACETAMINOPHEN 325 MG TAB PO PRN (09:45)
[2019-11-21] MEDS: PANTOPRAZOLE SOD 40 MG TABEC PO SCH ×2 (09:58→17:00)
[2019-11-21] MEDS: GABAPENTIN 300 MG CAP PO SCH ×3 (09:58→21:00)
[2019-11-21] MEDS: ENALAPRIL MALEATE 5 MG TAB PO SCH (09:59)
[2019-11-21] MEDS ORDERED: DEXTROSE 50% SYRINGE 50 ML IV PRN (10:15)
[2019-11-21] MEDS: DEXTROSE 5%/0.9% SOD CHL 1,000 ML IV SCH (10:26)
[2019-11-21 10:43] LABS: BASOPHILS # (AUTO) 0.1 (0.0-0.1); BASOPHILS % 0.7 % (0.0-1.0); EOSINOPHILS # (AUTO) 0.3 (0.0-0.4); EOSINOPHILS % 3.1 % (0.0-6.0); HEMATOCRIT 46.1 % (38.2-49.6); HEMOGLOBIN 16.1 g/dL (14.0-18.0); LYMPHOCYTES % 25.1 % (18.0-39.1); MEAN CORPUSCULAR HEMOGLOBIN 28.2 pg (28-32); MEAN CORPUSCULAR HGB CONC 34.9 g/dL (31-35); MEAN CORPUSCULAR VOLUME 80.9 fL (81-99); MONOCYTES # (AUTO) 0.7 (0.2-0.8); MONOCYTES % 8.2 % (4.4-11.3); NEUTROPHILS # (AUTO) 5.1 (2.1-6.9); NEUTROPHILS % 62.5 % (38.7-80.0); PLATELET COUNT 174 x10e3/uL (140-360); RED CELL DISTRIBUTION WIDTH 13.3 % (11.7-14.4)
[2019-11-21 10:58] LABS: CHOL/HDL RATIO 4.6 (3.9-4.7)
[2019-11-21] MEDS: INSULIN LISPRO 100 UNIT/1 ML 3ML VIAL SQ SCH ×3 (11:19→21:00)
[2019-11-21] MEDS ORDERED: INSULIN LISPRO 100 UNIT/1 ML 3ML VIAL SQ SCH (11:30)
--- NOTE | 2019-11-21 11:51 | History and Physical ---
HISTORY OF PRESENT ILLNESS: The patient essentially is a 44-year-old with male past medical history positive for diabetes, left below-knee amputation because of infected left foot, came to the hospital complaining of abdominal pain and nausea. The patient was found to have pancreatitis and admitted to the hospital. REVIEW OF SYSTEMS: CARDIOVASCULAR: No chest pain or palpitation. RESPIRATORY: No shortness of breath. No cough. GASTROINTESTINAL: He has nausea, but no vomiting. No diarrhea. He had diarrhea a few days ago, but not anymore. He has severe epigastric pain. GENITOURINARY: No urinary frequency or dysuria. ALLERGIES: ALLERGIC TO VANCOMYCIN. SOCIAL HISTORY: He does not smoke. He does not drink. PAST MEDICAL HISTORY: Diabetes, peripheral vascular disease. PAST SURGICAL HISTORY: Status post left below-knee amputation secondary to infected foot. PHYSICAL EXAMINATION: VITAL SIGNS: Blood pressure 150/88, temperature 97.8, heart rate 81 per minute, respiratory rate 18 per minute, and oxygen saturation 98%. HEART: Showed regular rhythm. Normal S1, S2 sound. LUNGS: Clear bilaterally. ABDOMEN: Soft. Minimal epigastric tenderness. No distention. No visceromegaly. EXTREMITIES: Showed left below-knee amputation. LABORATORY DATA: Urinalysis shows some protein, trace of blood and some bilirubin, red blood cells and white blood cells. On the CMP; sodium 137, potassium 3.9, chloride 101, CO2 26, BUN 9, creatinine 0.85, glucose 244, calcium 9.9, total bilirubin 0.6, AST 16, ALT 30, alkaline phosphatase 130, total protein 7.9, albumin 3.8, globulin 4.1, lipase 184. The CBC showed white blood count 12.42, hemoglobin 17.9, hematocrit 33.14, platelet count 204,000. The CT scan of the abdomen showed septal findings of acute interstitial edematous pancreatitis and fluid collection, recommend followup contrast and abdominal CT pancreas protocol in three months, hepatic steatosis. FINAL IMPRESSION: 1. Acute pancreatitis. 2. Uncontrolled diabetes mellitus type 2. 3. Peripheral vascular disease, status post left below-knee amputation. 4. Obesity. 5. Fatty liver. PLAN OF TREATMENT: N.p.o. of course. Continue with IV fluids, D5 normal saline at 100 mL an hour. We are going to continue enalapril 2.5 mg daily, Drisdol 50,000 units once a week, gabapentin 300 mg three times a day for diabetic neuropathy, morphine 4 mg IV q.4 hours as needed for severe pain, Zofran 4 mg IV q.4 hours as needed for nausea and vomiting, Protonix 40 mg twice a day, tramadol 50 mg q.6 hours as needed for wbul-pt-memmpwgs pain, trazodone 50 mg at nighttime p.r.n. for insomnia. We are going to also give him some Tylenol for pain or fever. We can do the 325 q.4 hours as needed for pain or fever. Gastroenterology consult with Dr. Casey Patino has been requested. MD CHONG Goldsmith/JORDI /[id number]
[2019-11-21 13:30] VITALS: BP 154/74
--- NOTE | 2019-11-21 13:30 | NUR ---
PATIENT RECEIVED FROM ER PER STRETCHER. ALERT AND VERBALLY RESPONSIVE. C/O PAIN AND WAS MEDICATED ORDERED. SKIN WARM AND DRY TO TOUCH, RESPIRATION EVEN AND UNLABORED, ABDOMEN SOFT, LARGE AND NON DISTENDED. TELEMETRY BOX [address]. PATIENT HAD A PREVIEWS LEFT BKA WITH PROSTHESIS IN PLACE. BED IN LOWER POSITION AND LOCKED. CALL LIGHT AT REACH, INSTRUCTED TO CALL FOR ASSISTANCE NEEDED.
[2019-11-21 14:16] VITALS: BP 154/74
--- NOTE | 2019-11-21 15:40 | NUR ---
PATIENT SITTING UP IN BED TALKING TO FAMILY MEMBERS VISITING. CALL LIGHT AT REACH.
[2019-11-21 16:27] VITALS: BP 141/76
--- NOTE | 2019-11-21 19:28 | NUR ---
RECEIVED PT LYING ON THE BED AOX3 .IV FLUID [id number] IS GOING .PT C/O PAIN .FAMILY AT THE BEDSIDE CALL LIGHT WITH IN REACH .CONTINUE TO MONITOR
--- NOTE | 2019-11-21 19:51 | NUR ---
MEDICATED THE PT WITH MORPHINE AND ZOFRAN .CALL LIGHT WITH IN REACH ,CONTINUE TO MONITOR
[2019-11-21 20:00] VITALS: BP 141/66
[2019-11-21 20:21] VITALS: BP 141/76
[2019-11-21] MEDS ORDERED: TRAZODONE HCL 50 MG TAB PO PRN (21:00)
[2019-11-22] VITALS: BP 156/98
[2019-11-22] MEDS: ONDANSETRON HCL INJ 2MG/ML 2ML 2 MG/ML VIAL IV PRN ×2 (00:50→09:18)
[2019-11-22] MEDS: DEXTROSE 5%/0.9% SOD CHL 1,000 ML IV SCH ×2 (02:44→06:25)
[2019-11-22] MEDS: MORPHINE SULFATE INJ 4 MG/ML INJ 1ML IV PRN ×2 (03:00→09:18)
[2019-11-22 05:38] LABS: BASOPHILS # (AUTO) 0.1 (0.0-0.1); BASOPHILS % 0.6 % (0.0-1.0); EOSINOPHILS # (AUTO) 0.2 (0.0-0.4); EOSINOPHILS % 1.9 % (0.0-6.0); HEMATOCRIT 46.1 % (38.2-49.6); HEMOGLOBIN 15.7 g/dL (14.0-18.0); LYMPHOCYTES # (AUTO) 1.8 (1.0-3.2); LYMPHOCYTES % 20.5 % (18.0-39.1); MEAN CORPUSCULAR HEMOGLOBIN 27.7 pg (28-32); MEAN CORPUSCULAR HGB CONC 34.1 g/dL (31-35); MEAN CORPUSCULAR VOLUME 81.4 fL (81-99); MONOCYTES # (AUTO) 0.7 (0.2-0.8); MONOCYTES % 8.1 % (4.4-11.3); NEUTROPHILS # (AUTO) 6.1 (2.1-6.9); NEUTROPHILS % 68.6 % (38.7-80.0); PLATELET COUNT 181 x10e3/uL (140-360); RED BLOOD COUNT 5.66 x10e6/uL (4.3-5.7); RED CELL DISTRIBUTION WIDTH 13.2 % (11.7-14.4)
--- NOTE | 2019-11-22 05:39 | NUR ---
PT C/O PAIN AND GIVEN ORDERED PAIN MEDICATION /CALL LIGHT WIT H IN REACH .CONTINUE TO MONITOR
[2019-11-22] MEDS ORDERED: METOCLOPRAMIDE HCL 10 MG/2ML VIAL IV SCH (06:00)
[2019-11-22 06:01] LABS: ALANINE AMINOTRANSFERASE 24 IU/L (0-55); ALBUMIN 3.2 g/dL (3.5-5.0); ALBUMIN/GLOBULIN RATIO 0.9 (0.8-2.0); ALKALINE PHOSPHATASE 104 IU/L (40-150); ANION GAP 9.5 mmol/L (8-16); BLOOD UREA NITROGEN 7 mg/dL (7-26); BUN/CREATININE RATIO 10 (6-25); CALCIUM 8.5 mg/dL (8.4-10.2); CARBON DIOXIDE 26 mmol/L (22-29); CHLORIDE 104 mmol/L (98-107); EST GLOMERULAR FILTRATION RATE > 60 ML/MIN (60-); GLUCOSE 266 mg/dL (74-118); POTASSIUM 3.5 mmol/L (3.5-5.1); SODIUM 136 mmol/L (136-145)
--- NOTE | 2019-11-22 06:17 | NUR ---
PT RESTING .DENIES PAIN AT THIS TIME .CALL LIGHT WITH IN REACH .CONTINUE TO MONITOR
--- NOTE | 2019-11-22 07:03 | NUR ---
BEDSIDE REPORT GIVEN TO THE ONCOMING NURSE
--- NOTE | 2019-11-22 07:05 | NUR ---
RECD PT IN BED ,PAIN LEVEL 3 ,
[2019-11-22 07:10] VITALS: BP 139/74
[2019-11-22 07:54] VITALS: BP 139/74
[2019-11-22] MEDS: INSULIN LISPRO 100 UNIT/1 ML 3ML VIAL SQ SCH (08:00)
[2019-11-22] MEDS: GABAPENTIN 300 MG CAP PO SCH (08:11)
[2019-11-22] MEDS: PANTOPRAZOLE SOD 40 MG TABEC PO SCH (08:11)
[2019-11-22] MEDS: ENALAPRIL MALEATE 5 MG TAB PO SCH (08:14)
--- NOTE | 2019-11-22 09:26 | NUR ---
PT C/O PAIN LEVEL 6 TO ABD MEDICATED,DR MARIE HERE
[2019-11-22 11:55] VITALS: BP 149/90
--- NOTE | 2019-11-22 12:32 | Discharge Summary ---
HOSPITAL COURSE: The patient is 44-year-old male with past medical history positive for diabetes, peripheral vascular disease, and fatty liver, came here with abdominal pain. He was found to have very mild pancreatitis. The last lipase is normal. CT of the abdomen showed very mild pancreatitis. The patient is symptom free. He is going home today if okay with Dr. Casey Patino. PHYSICAL EXAMINATION: HEART: Showed regular rhythm. Normal S1, S2 sound. LUNGS: Clear bilaterally. ABDOMEN: Soft, nontender. No distention. No visceromegaly. LABORATORY DATA: On the BMP; sodium of 136, potassium 3.5, chloride 104, CO2 26, BUN 7, creatinine 0.70, glucose 253, calcium 8.5, total bilirubin 0.6, AST 18, ALT 24, alkaline phosphatase 104, total protein 6.7, albumin 3.2, globulin 3.5, triglycerides 317, cholesterol 130, LDL cholesterol 39, HDL cholesterol 28. Lipase is 77. On the CBC; white blood count 8.93, hemoglobin 15.7, hematocrit 46.1, platelet count 181,000. FINAL IMPRESSION: 1. Mild pancreatitis, most likely secondary to hypertriglyceridemia. 2. Uncontrolled diabetes mellitus type 2. 3. Peripheral vascular disease. 4. Fatty liver. PLAN OF TREATMENT: We are going to start the patient on Tricor 145 mg p.o. daily. The patient can go home today if okay with Dr. Casey Patino. Resume rest of home medications. MD CHONG Goldsmith/JORDI /[id number]
[2019-11-28] MEDS ORDERED: ERGOCALCIFEROL 50,000 UNIT CAP PO SCH (09:00)
== END 2019-11-22 12:44 | disposition home or self-care (01) ==
LOC: ER 17:35 → INTOOBSV 11-21 00:14 → ERHOLD 11-21 00:14 → MED/SURG3 11-21 13:08
PROVIDERS: ADMIT Internal Medicine; ATTEND Internal Medicine
DX: K85.90 Acute pancreatitis without necrosis or infection, unspecified (principal); K76.0 Fatty (change of) liver, not elsewhere classified; E11.51 Type 2 diabetes mellitus with diabetic peripheral angiopathy without gangrene; Z89.512 Acquired absence of left leg below knee; E66.9 Obesity, unspecified; Z68.41 Body mass index [BMI] 40.0-44.9, adult; E11.65 Type 2 diabetes mellitus with hyperglycemia
CPT/HCPCS: 36415 ×2; 74177; 80053 ×2; 80061; 81001; 82948 ×2; 83690 ×2; 85025 ×3; 93005; 99284; C9113; G0378 ×2; J2270 ×3; J2405 ×2; J2765; J7030 ×2; J7042 ×2; Q9967; S0164

== ENCOUNTER 2022-04-12 19:58 | Emergency (ER) | payer MEDICARE, OTHER ==
[~2022-04-12] VITALS: Ht 180.3 cm; Wt 136.1 kg
[~2022-04-12 19:58] MED LIST changes: +CYCLOBENZAPRINE5 MG PO; +IBUPROFEN600 MG PO; +LIDOCAINE PAIN1 EACH TD
[2022-04-12] MEDS ORDERED: TRAMADOL HCL 50 MG TAB PO STA (20:28)
[2022-04-12] MEDS ORDERED: ACETAMINOPHEN-1 EAC4 PO (21:54)
== END 2022-04-12 21:50 | disposition home or self-care (01) ==
LOC: ER 20:27
DX: R23.8 Other skin changes (principal); W18.39XA Other fall on same level, initial encounter; Y93.01 Activity, walking, marching and hiking; Y92.89 Other specified places as the place of occurrence of the external cause; E11.40 Type 2 diabetes mellitus with diabetic neuropathy, unspecified; M54.9 Dorsalgia, unspecified; G89.29 Other chronic pain; G47.00 Insomnia, unspecified
CPT/HCPCS: 99283

== ENCOUNTER 2025-06-24 17:54 | Inpatient (IN) | payer MEDICARE, OTHER ==
[~2025-06-24] VITALS: Ht 180.3 cm; Wt 129.3 kg
[~2025-06-24 17:54] MED LIST changes: +ACETAMINOPHEN-1 EAC4 PO
[2025-06-24 18:42] LABS: BASOPHILS % 0.6 % (0.0-1.0); EOSINOPHILS % 1.5 % (0.0-6.0); LYMPHOCYTES % 18.3 % (18.0-39.1); MONOCYTES % 8.6 % (4.4-11.3); NEUTROPHILS % 70.8 % (38.7-80.0); RED CELL DISTRIBUTION WIDTH 13.6 % (11.7-14.4)
[2025-06-24 18:45] LABS: LEUKOCYTE ESTERASE ,URINE TRACE (NEGATIVE); PROTEIN,URINE DIPSTICK >=300 (NEGATIVE); URINE UROBILINOGEN 0.2 mg/dL (0.2 - 1)
[2025-06-24 18:58] LABS: WBC,URINE (MAN) 21-50 /HPF (0-5)
[2025-06-24 19:05] LABS: EST GLOMERULAR FILTRATION RATE 80 ML/MIN (>=60)
[2025-06-24] MEDS: Morphine 4mg INJECTION 4 MG/ML INJ IV STA (19:14)
[2025-06-24] MEDS ORDERED: IOPAMIDOL 370 MG/ML 100 ML INFUS..BTL INJ ONE (19:15)
[2025-06-24] MEDS: ONDANSETRON HCL INJ 2MG/ML 2ML 2 MG/ML VIAL IV STA (19:15)
[2025-06-24] MEDS: SODIUM CHLORIDE 0.9% 1000ML 1,000 ML IV STA (19:15)
[2025-06-24] MEDS: HYDROMORPHONE 1MG/1ML INJ IV PRN (21:12)
[2025-06-24 22:14] VITALS: PULSE 95; RESP 18; TEMP 98.3
[2025-06-24] MEDS ORDERED: GLIPIZIDE5 MG PO (23:22)
[2025-06-24] MEDS ORDERED: ENALAPRIL MALEA20 MG ×2 (23:22→23:24)
[2025-06-24] MEDS ORDERED: HUMALOG KW200 UNIT/1 (23:22)
[2025-06-24] MEDS ORDERED: HUMALOG (23:22)
[2025-06-24] MEDS ORDERED: DEXTROSE 50% SYRINGE 50 ML IV PRN (23:30)
[2025-06-24] MEDS: TAMSULOSIN HCL 0.4 MG CAP PO SCH (23:45)
[2025-06-24 23:49] VITALS: BP 122/62; PULSE 90; RESP 19; TEMP 97.7; O2SAT 99
[2025-06-24 23:50] VITALS: BP 122/62; RESP 19; TEMP 97.7; O2SAT 99
[2025-06-25] VITALS (8 sets, daily range): BP systolic 94–137; BP diastolic 51–74; PULSE 90–124; RESP 17–20; TEMP 97.1–98.6; O2SAT 93–99
[2025-06-25] MEDS: SODIUM CHLORIDE 0.9% 1000ML 1,000 ML IV SCH (00:06)
[2025-06-25] MEDS: HYDROCODONE/APAP 10MG-325MG TAB PO PRN (00:20)
[2025-06-25 05:03] LABS: BASOPHILS % 0.1 % (0.0-1.0); EOSINOPHILS % 0.9 % (0.0-6.0); LYMPHOCYTES % 14.2 % (18.0-39.1); MONOCYTES % 4.2 % (4.4-11.3); NEUTROPHILS % 80.3 % (38.7-80.0); RED CELL DISTRIBUTION WIDTH 13.7 % (11.7-14.4)
[2025-06-25 05:32] LABS: EST GLOMERULAR FILTRATION RATE 72.0 ML/MIN (>=60)
[2025-06-25 06:25] LABS: CHOL/HDL RATIO 3.5 (3.9-4.7); LDL CHOLESTEROL 54.0 MG/DL (60-130); PHOSPHORUS 3.6 MG/DL (2.3-4.7)
[2025-06-25] MEDS ORDERED: INSULIN LISPRO 100 UNIT/1 ML 3ML VIAL SQ SCH (07:30)
[2025-06-25] MEDS ORDERED: DEXTROSE 5%/0.45% SOD CHL 1,000 ML IV SCH (09:15)
[2025-06-25] MEDS ORDERED: DEXTROSE 50% SYRINGE 50 ML IV PRN (09:30)
[2025-06-25] MEDS: KETOROLAC TROMETHAMINE 30 MG/ML VIAL IV ONE (10:18)
[2025-06-25] MEDS: DEXTROSE 5%/0.9% SOD CHL 1,000 ML IV SCH (10:19)
[2025-06-25] MEDS: INSULIN LISPRO 100 UNIT/1 ML 3ML VIAL SQ SCH ×2 (11:19→16:30)
[2025-06-25] MEDS: SODIUM CHLORIDE 0.9% 1000ML 500 ML IV ONE ×2 (22:26)
[2025-06-26] VITALS (7 sets, daily range): BP systolic 90–106; BP diastolic 54–70; PULSE 106–121; RESP 16–20; TEMP 97.8–99.5; O2SAT 97–99
[2025-06-26 05:16] LABS: BASOPHILS % 0.1 % (0.0-1.0); EOSINOPHILS % 1.0 % (0.0-6.0); LYMPHOCYTES % 3.1 % (18.0-39.1); MONOCYTES % 4.1 % (4.4-11.3); NEUTROPHILS % 90.9 % (38.7-80.0); RED CELL DISTRIBUTION WIDTH 14.0 % (11.7-14.4)
[2025-06-26 05:58] LABS: EST GLOMERULAR FILTRATION RATE 35.0 ML/MIN (>=60)
[2025-06-26] MEDS: INSULIN GLARGINE 100 UNITS/ML VIAL SQ SCH (08:26)
[2025-06-26] MEDS: SODIUM CHLORIDE 0.9% 1000ML 1,000 ML IV SCH (10:04)
[2025-06-26] MEDS: SENNA-S TABLET PO SCH (10:05)
[2025-06-26] MEDS: POLYETHYLENE GLYCOL 3350 17 GM PACK PO SCH (10:05)
[2025-06-26 11:51] LABS: EOSINOPHILS % (MANUAL) 1 % (0-7); LYMPHOCYTES % (MANUAL) 1 % (19-48); MONOCYTES % (MANUAL) 2 % (3.4-9.0); NEUTROPHILS % (MANUAL) 96 % (40-74)
[2025-06-26 11:53] LABS: PLATELET ESTIMATE ADEQUATE; PLATELET MORPHOLOGY COMMENT NORMAL
[2025-06-26] MEDS: DIPHENHYDRAMINE HCL 25 MG CAP PO PRN (13:16)
[2025-06-26] MEDS: SODIUM CHLORIDE 0.9% 1000ML 1,000 ML IV STA (17:02)
[2025-06-26] MEDS ORDERED: ACETAMINOPHEN 1000 MG/100 ML IV PRN (18:45)
[2025-06-26] MEDS: SODIUM BICARBONATE 8.4% VIAL 150 ML in DEXTROSE 5% 1,000 ML IV SCH (20:41)
[2025-06-26 23:15] LABS: BASOPHILS % 0.1 % (0.0-1.0); EOSINOPHILS % 2.0 % (0.0-6.0); LYMPHOCYTES % 5.4 % (18.0-39.1); MONOCYTES % 4.9 % (4.4-11.3); NEUTROPHILS % 87.1 % (38.7-80.0); RED CELL DISTRIBUTION WIDTH 14.0 % (11.7-14.4)
[2025-06-26 23:31] LABS: EST GLOMERULAR FILTRATION RATE 43.0 ML/MIN (>=60)
[2025-06-27] VITALS (7 sets, daily range): BP systolic 96–144; BP diastolic 60–75; PULSE 94–106; RESP 18–20; TEMP 97.7–98.8; O2SAT 97–100
[2025-06-27 05:18] LABS: BASOPHILS % 0.2 % (0.0-1.0); EOSINOPHILS % 2.4 % (0.0-6.0); LYMPHOCYTES % 5.7 % (18.0-39.1); MONOCYTES % 5.1 % (4.4-11.3); NEUTROPHILS % 86.3 % (38.7-80.0); RED CELL DISTRIBUTION WIDTH 14.2 % (11.7-14.4)
[2025-06-27 05:47] LABS: EST GLOMERULAR FILTRATION RATE 47.0 ML/MIN (>=60)
[2025-06-27] MEDS: LORATADINE 10 MG TAB PO SCH (09:10)
[2025-06-27] MEDS: HYDROXYZINE HCL 10 MG TAB PO SCH (09:19)
[2025-06-27] MEDS: ONDANSETRON HCL INJ 2MG/ML 2ML 2 MG/ML VIAL IV PRN (12:02)
[2025-06-27] MEDS: HYDROMORPHONE 1MG/1ML INJ IV PRN (12:02)
[2025-06-28] VITALS (8 sets, daily range): BP systolic 116–192; BP diastolic 62–90; PULSE 83–93; RESP 18–20; TEMP 97.5–98.2; O2SAT 97–98
[2025-06-28 05:54] LABS: EST GLOMERULAR FILTRATION RATE 63.0 ML/MIN (>=60); PHOSPHORUS 2.0 MG/DL (2.3-4.7)
[2025-06-28] MEDS ORDERED: TRAMADOL HCL 50 MG TAB PO PRN (09:30)
[2025-06-28] MEDS: INSULIN GLARGINE 100 UNITS/ML VIAL SQ SCH (10:36)
[2025-06-28] MEDS: HYDROCORTISONE SOD SUCCINATE 100 MG VIAL IV ONE (17:42)
[2025-06-28] MEDS: CLONIDINE HCL 0.1 MG TAB PO SCH (17:46)
[2025-06-28] MEDS ORDERED: SODIUM CHLORIDE 0.9% 250ML 250 ML ONE (17:51)
[2025-06-28] MEDS: DIPHENHYDRAMINE HCL INJ 50 MG/ML VIAL IV ONE (17:55)
[2025-06-28] MEDS: MAGNESIUM SULF 1GRAM/DEXTROSE 100 ML IV ONE (17:56)
[2025-06-28] MEDS: HYDROXYZINE HCL 25 MG TAB PO PRN (21:44)
[2025-06-28] MEDS: POTASSIUM PHOSPHATE 15 MM in SODIUM CHLORIDE 0.9% 250ML 250 ML IV ONE (21:46)
[2025-06-28] MEDS: HYDRALAZINE HCL 20 MG/ML VIAL IV PRN (22:30)
[2025-06-29] VITALS: BP 167/92; PULSE 77; RESP 20; TEMP 97.7; O2SAT 96
[2025-06-29 04:00] VITALS: BP 178/88; PULSE 96; RESP 18; TEMP 97.5; O2SAT 97
[2025-06-29 05:54] LABS: BASOPHILS % 0.6 % (0.0-1.0); EOSINOPHILS % 5.1 % (0.0-6.0); LYMPHOCYTES % 25.9 % (18.0-39.1); MONOCYTES % 7.0 % (4.4-11.3); NEUTROPHILS % 60.6 % (38.7-80.0); RED CELL DISTRIBUTION WIDTH 13.9 % (11.7-14.4)
[2025-06-29 06:25] LABS: EST GLOMERULAR FILTRATION RATE 86.0 ML/MIN (>=60)
[2025-06-29 08:57] VITALS: BP 185/87; PULSE 80; RESP 18; TEMP 97.4; O2SAT 98
[2025-06-29 09:45] VITALS: BP 185/81; PULSE 80; RESP 18; TEMP 97.4; O2SAT 98
[2025-06-29] MEDS ORDERED: FLOMAX0.4 MG PO (11:20)
[2025-06-29] MEDS ORDERED: atarax PO (11:21)
[2025-06-29] MEDS ORDERED: CLARITIN10 MG PO (11:22)
[2025-06-29 11:35] LABS: EOSINOPHILS % (MANUAL) 1 % (0-7); LYMPHOCYTES % (MANUAL) 17 % (19-48); MONOCYTES % (MANUAL) 1 % (3.4-9.0); NEUTROPHILS % (MANUAL) 81 % (40-74); PLATELET ESTIMATE ADEQUATE; PLATELET MORPHOLOGY COMMENT NORMAL; RBC MORPHOLOGY COMMENT NORMAL
[2025-06-29 12:07] VITALS: BP 176/79; PULSE 97; RESP 20; TEMP 98.6; O2SAT 100
== END 2025-06-29 12:35 | disposition home or self-care (01) | DRG 438 ==
LOC: ER 17:58 → ERHOLD 21:33 → MED/SURG 22:38
PROVIDERS: ADMIT Internal Medicine; ATTEND Internal Medicine
PROC: 0T9B70Z Drainage of Bladder with Drainage Device, Via Natural or Artificial Opening (ICD-10-PCS; principal; 2025-06-26)
DX: K85.90 Acute pancreatitis without necrosis or infection, unspecified (principal); N17.0 Acute kidney failure with tubular necrosis; E87.20 Acidosis, unspecified; N13.8 Other obstructive and reflux uropathy; E87.1 Hypo-osmolality and hyponatremia; N39.0 Urinary tract infection, site not specified; K86.1 Other chronic pancreatitis; E11.22 Type 2 diabetes mellitus with diabetic chronic kidney disease; E11.51 Type 2 diabetes mellitus with diabetic peripheral angiopathy without gangrene; E11.42 Type 2 diabetes mellitus with diabetic polyneuropathy; I16.0 Hypertensive urgency; E86.0 Dehydration; N40.0 Benign prostatic hyperplasia without lower urinary tract symptoms; R33.8 Other retention of urine; N18.9 Chronic kidney disease, unspecified; L27.0 Generalized skin eruption due to drugs and medicaments taken internally; T36.8X5A Adverse effect of other systemic antibiotics, initial encounter; E66.813 Obesity, class 3; Z68.39 Body mass index [BMI] 39.0-39.9, adult; R11.2 Nausea with vomiting, unspecified; M54.50 Low back pain, unspecified; R79.89 Other specified abnormal findings of blood chemistry; M19.90 Unspecified osteoarthritis, unspecified site; T50.8X5A Adverse effect of diagnostic agents, initial encounter; Z79.4 Long term (current) use of insulin; Z79.891 Long term (current) use of opiate analgesic; Z79.84 Long term (current) use of oral hypoglycemic drugs; Z89.512 Acquired absence of left leg below knee; Z90.49 Acquired absence of other specified parts of digestive tract; Z88.1 Allergy status to other antibiotic agents
CPT/HCPCS: 36415; 74177; 76770; 80053; 80061; 80320; 81001; 82550; 82607; 82948; 83036; 83690; 83735; 84100; 84439; 84443; 84484; 85025; 87040; 87071; 87086; 87186; 87205; 93005; 96361; 96372; 99252; 99284; J0360; J0692; J1171; J1200; J1720; J1815; J1885; J2185; J2270; J2405; J2470; J2543; J3410; J3475; J7030; J7042; J7050; J7070; Q9967